=== PATIENT | male | born 1990 | race Caucasian/White ===

== ENCOUNTER 2017-02-22 16:43 | Emergency (ER) | payer OTHER ==
[2017-02-22] MEDS ORDERED: SODIUM CHLORIDE 0.9% 1,000 ML IV ONE (17:00)
--- NOTE | 2017-02-22 17:05 | ED ---
General Adult HPI - General Chief complaint: Recheck/Abnormal Lab/Rx Stated complaint: Heart Issue, numbness Time Seen by Provider: 02/22/17 16:52 Source: patient, RN notes reviewed Mode of arrival: wheelchair Limitations: no limitations - History of Present Illness Initial comments: This is a 26-year-old male with a history of Marfan syndrome who did have an aortic valve replacement done in the past several years who presents with complaints of intermittent episodes of confusion television tingling to some fingers into his face. This is been going on and off for the past several days. He also feels like he may be coming down with a migraine headache which he's had before. He did call his cargoman 2 days ago did recommend coming to the emergency department he refrain at that time he is here today. He denies any fevers chills nausea vomiting sweats. No focal weakness was upper or lower extremities no abdominal pain. He does state he is noted some irregularity to his heart and does hear his heart valve clicking lower than usual. 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 - Related Data Home Medications Medication Instructions Recorded Confirmed Butalb/APAP/Caff 50-325-40Mg 1 tab PO BID PRN 07/01/16 02/22/17 [Fioricet 50-325-40] Carvedilol [Coreg] 3.125 mg PO BID 07/01/16 02/22/17 Losartan [Cozaar] 25 mg PO DAILY 07/01/16 02/22/17 Spironolactone [Aldactone] 25 mg PO DAILY 07/01/16 02/22/17 Sildenafil Citrate [Viagra] 50 mg PO DAILY PRN 02/22/17 02/22/17 Warfarin [Coumadin] 7.5 mg PO SUTUTHSA 02/22/17 02/22/17 Warfarin [Coumadin] 10 mg PO MOWEFR 02/22/17 02/22/17 Allergies Allergy/AdvReac Type Severity Reaction Status Date / Time amoxicillin Allergy Unknown Verified 02/22/17 17:50 Childhood Review of Systems ROS Statement: Those systems with pertinent positive or pertinent negative responses have been documented in the HPI. ROS Other: All systems not noted in ROS Statement are negative. Past Medical History Additional Past Medical History / Comment(s): Marfan's Syndrome; Valvular issues AVR 2015; Spontaneous Pneumo; Aortic aneurysm History of Any Multi-Drug Resistant Organisms: None Reported Past Surgical History: Appendectomy, Orthopedic Surgery Additional Past Surgical History / Comment(s): Eye surgery; Foot surgery x4 Past Anesthesia/Blood Transfusion Reactions: No Reported Reaction Past Psychological History: No Psychological Hx Reported Smoking Status: Never smoker Past Alcohol Use History: None Reported Past Drug Use History: None Reported - Past Family History Father Family Medical History: AFIB Mother Family Medical History: No Reported History General Exam - General Exam Comments Initial Comments: This is a well-developed asthenic appearing male he is awake alert oriented 3 the patient does demonstrate some evidence of hyperventilation. Limitations: no limitations General appearance: alert, anxious Head exam: Present: atraumatic, normocephalic, normal inspection Eye exam: Present: PERRL, EOMI. Absent: scleral icterus, conjunctival injection , periorbital swelling Pupils: Present: irregular, other (Anisocoria the right pupil is pinpoint the left one is about 3-4 mm) ENT exam: Present: normal exam, mucous membranes moist Neck exam: Present: normal inspection. Absent: tenderness, meningismus, lymphadenopathy Respiratory exam: Present: normal lung sounds bilaterally. Absent: respiratory distress, wheezes, rales, rhonchi, stridor Cardiovascular Exam: Present: regular rate, normal rhythm, normal heart sounds, other (Marked audible click with the heart valve as noted.). Absent: systolic murmur, diastolic murmur, rubs, gallop, clicks GI/Abdominal exam: Present: soft, normal bowel sounds. Absent: distended, tenderness, guarding, rebound, rigid Extremities exam: Present: normal inspection, full ROM, normal capillary refill. Absent: tenderness, pedal edema, joint swelling, calf tenderness Back exam: Present: normal inspection Neurological exam: Present: alert, oriented X3, CN II-XII intact Psychiatric exam: Present: normal affect, normal mood Skin exam: Present: warm, dry, intact, normal color. Absent: rash Course Vital Signs 02/22/17 02/22/17 02/22/17 16:45 18:00 18:52 Temperature 98.1 F Pulse Rate 88 66 70 Respiratory 20 18 18 Rate Blood Pressure 137/84 136/87 143/76 O2 Sat by Pulse 98 100 97 Oximetry 06/03/17 19:05 Temperature 99.0 F Pulse Rate 78 Respiratory 18 Rate Blood Pressure 135/72 O2 Sat by Pulse 99 Oximetry EKG Findings - EKG Results: EKG: interpreted by ERMD (Sinus rhythm rate of 83. Arrival 190 QRS duration 100 daily since QTC of 376/441 possible left atrial enlargement no acute ST-T wave changes some artifact is present) Medical Decision Making - Medical Decision Making The patient currently symptom-free I did discuss findings with him and his family. Patient will be discharged I did discuss the case with Dr. Márquez also who is covering for Dr. Ramirez. The patient will be discharge is follow-up with his cargoman and return when necessary he does have an appointment rescheduled. - Lab Data Result diagrams: 02/22/17 17:00 02/22/17 17:00 Lab Results 02/22/17 02/22/17 02/22/17 Range/Units 17:00 17:00 17:00 WBC 6.3 (3.8-10.6) k/uL RBC 4.22 L (4.30-5.90) m/uL Hgb 13.6 (13.0-17.5) gm/dL Hct 40.3 (39.0-53.0) % MCV 95.5 (80.0-100.0) fL MCH 32.2 (25.0-35.0) pg MCHC 33.7 (31.0-37.0) g/dL RDW 13.0 (11.5-15.5) % Plt Count 244 (150-450) k/uL Neutrophils % 61 % Lymphocytes % 29 % Monocytes % 6 % Eosinophils % 1 % Basophils % 0 % Neutrophils # 3.9 (1.3-7.7) k/uL Lymphocytes # 1.9 (1.0-4.8) k/uL Monocytes # 0.4 (0-1.0) k/uL Eosinophils # 0.1 (0-0.7) k/uL Basophils # 0.0 (0-0.2) k/uL PT (9.0-12.0) sec INR (<1.1) APTT (22.0-30.0) sec Sodium 139 (137-145) mmol/L Potassium 4.1 (3.5-5.1) mmol/L Chloride 104 (98-107) mmol/L Carbon Dioxide 25 (22-30) mmol/L Anion Gap 10 mmol/L BUN 19 (9-20) mg/dL Creatinine 1.00 (0.66-1.25) mg/dL Est GFR (MDRD) Af Amer >60 (>60 ml/min/1.73 sqM) Est GFR (MDRD) Non-Af >60 (>60 ml/min/1.73 sqM) Glucose 105 H (74-99) mg/dL POC Glucose (mg/dL) (75-99) mg/dL POC Glu Structural Engineering Project Manager ID Calcium 9.4 (8.4-10.2) mg/dL Magnesium 1.9 (1.6-2.3) mg/dL Total Bilirubin 0.9 (0.2-1.3) mg/dL AST 22 (17-59) U/L ALT 28 (21-72) U/L Alkaline Phosphatase 63 (38-126) U/L Total Creatine Kinase 154 (55-170) U/L CK-MB (CK-2) 0.9 (0.0-2.4) ng/mL CK-MB (CK-2) Rel Index 0.6 Troponin I 0.016 (0.000-0.034) ng/mL Total Protein 7.7 (6.3-8.2) g/dL Albumin 4.8 (3.5-5.0) g/dL Urine Color Urine Appearance (Clear) Urine pH (5.0-8.0) Ur Specific [place] (1.001-1.035) Urine Protein (Negative) Urine Glucose (UA) (Negative) Urine Ketones (Negative) Urine Blood (Negative) Urine Nitrite (Negative) Urine Bilirubin (Negative) Urine Urobilinogen (<2.0) mg/dL Ur Leukocyte Esterase (Negative) Urine Opiates Screen (NotDetected) Ur Oxycodone Screen (NotDetected) Urine Methadone Screen (NotDetected) Ur Propoxyphene Screen (NotDetected) Ur Barbiturates Screen (NotDetected) U Tricyclic Antidepress (NotDetected) Ur Phencyclidine Scrn (NotDetected) Ur Amphetamines Screen (NotDetected) U Methamphetamines Scrn (NotDetected) U Benzodiazepines Scrn (NotDetected) Urine Cocaine Screen (NotDetected) U Marijuana (THC) Screen (NotDetected) 02/22/17 02/22/17 02/22/17 Range/Units 17:00 17:10 17:22 WBC (3.8-10.6) k/uL RBC (4.30-5.90) m/uL Hgb (13.0-17.5) gm/dL Hct (39.0-53.0) % MCV (80.0-100.0) fL MCH (25.0-35.0) pg MCHC (31.0-37.0) g/dL RDW (11.5-15.5) % Plt Count (150-450) k/uL Neutrophils % % Lymphocytes % % Monocytes % % Eosinophils % % Basophils % % Neutrophils # (1.3-7.7) k/uL Lymphocytes # (1.0-4.8) k/uL Monocytes # (0-1.0) k/uL Eosinophils # (0-0.7) k/uL Basophils # (0-0.2) k/uL PT 19.8 H (9.0-12.0) sec INR 2.1 (<1.1) APTT 30.5 H (22.0-30.0) sec Sodium (137-145) mmol/L Potassium (3.5-5.1) mmol/L Chloride (98-107) mmol/L Carbon Dioxide (22-30) mmol/L Anion Gap mmol/L BUN (9-20) mg/dL Creatinine (0.66-1.25) mg/dL Est GFR (MDRD) Af Amer (>60 ml/min/1.73 sqM) Est GFR (MDRD) Non-Af (>60 ml/min/1.73 sqM) Glucose (74-99) mg/dL POC Glucose (mg/dL) 117 H (75-99) mg/dL POC Glu Structural Engineering Project Manager ID [place], Malinda Calcium (8.4-10.2) mg/dL Magnesium (1.6-2.3) mg/dL Total Bilirubin (0.2-1.3) mg/dL AST (17-59) U/L ALT (21-72) U/L Alkaline Phosphatase (38-126) U/L Total Creatine Kinase (55-170) U/L CK-MB (CK-2) (0.0-2.4) ng/mL CK-MB (CK-2) Rel Index Troponin I (0.000-0.034) ng/mL Total Protein (6.3-8.2) g/dL Albumin (3.5-5.0) g/dL Urine Color Yellow Urine Appearance Clear (Clear) Urine pH 6.0 (5.0-8.0) Ur Specific [place] 1.023 (1.001-1.035) Urine Protein Negative (Negative) Urine Glucose (UA) Negative (Negative) Urine Ketones Negative (Negative) Urine Blood Negative (Negative) Urine Nitrite Negative (Negative) Urine Bilirubin Negative (Negative) Urine Urobilinogen <2.0 (<2.0) mg/dL Ur Leukocyte Esterase Negative (Negative) Urine Opiates Screen Not Detected (NotDetected) Ur Oxycodone Screen Not Detected (NotDetected) Urine Methadone Screen Not Detected (NotDetected) Ur Propoxyphene Screen Not Detected (NotDetected) Ur Barbiturates Screen Not Detected (NotDetected) U Tricyclic Antidepress Not Detected (NotDetected) Ur Phencyclidine Scrn Not Detected (NotDetected) Ur Amphetamines Screen Not Detected (NotDetected) U Methamphetamines Scrn Not Detected (NotDetected) U Benzodiazepines Scrn Not Detected (NotDetected) Urine Cocaine Screen Not Detected (NotDetected) U Marijuana (THC) Screen Detected H (NotDetected) - Radiology Data Radiology results: report reviewed (I did review the imaging and reports no acute findings.), image reviewed Disposition Clinical Impression: Hyperventilation syndrome, Marfans syndrome, History of aortic valve replacement with metallic valve Disposition: HOME SELF-CARE Condition: Good Instructions: Hyperventilation (ED), Marfan Syndrome (ED) Referrals: Teressa Resendiz MD [Primary Care Provider] - 1-2 days Noe Ramirez MD [STAFF PHYSICIAN] - 1-2 days
[2017-02-22 17:23] LABS: Appearance,Urine Clear (Clear); Bilirubin,Urine Negative (Negative); Glucose,Urine (UA) Negative (Negative); Ketones,Urine Negative (Negative); Leukocyte Esterase,Urine Negative (Negative); Nitrite,Urine Negative (Negative); Protein,Urine Negative (Negative); Specific Gravity,Urine 1.023 (1.001-1.035); UA Billing (MACRO vs. MICRO) CHEM; Urobilinogen,Urine <2.0 mg/dL (<2.0)
[2017-02-22 17:24] LABS: Basophils % (A) 0 %; CH 33.2; Eosinophils # (A) 0.1 k/uL (0-0.7); Eosinophils % (A) 1 %; HCT 40.3 % (39.0-53.0); HDW 2.51; HGB 13.6 gm/dL (13.0-17.5); Luc # (Auto) 0.12; Luc % (Auto) 2; Lymphocytes # (A) 1.9 k/uL (1.0-4.8); Lymphocytes % (A) 29 %; MCH 32.2 pg (25.0-35.0); MCHC 33.7 g/dL (31.0-37.0); MCV 95.5 fL (80.0-100.0); Monocytes # (A) 0.4 k/uL (0-1.0); Monocytes % (A) 6 %; Neutrophils # (A) 3.9 k/uL (1.3-7.7); Neutrophils % (A) 61 %; RBC 4.22 m/uL (4.30-5.90); WBC 6.3 k/uL (3.8-10.6); WBC (Perox) 6.14
[2017-02-22 17:25] LABS: Glucose,Whole Blood 117 mg/dL (75-99)
[2017-02-22 17:34] LABS: ALT 28 U/L (21-72); AST 22 U/L (17-59); Alkaline Phosphatase 63 U/L (38-126); Anion Gap 10 mmol/L; Blood Urea Nitrogen 19 mg/dL (9-20); Calcium 9.4 mg/dL (8.4-10.2); Carbon Dioxide 25 mmol/L (22-30); Chloride 104 mmol/L (98-107); Glucose 105 mg/dL (74-99); INR 2.1 (<1.1); Magnesium 1.9 mg/dL (1.6-2.3); Non-African American GFR(MDRD) >60 (>60 ml/min/1.73 sqM); Partial Thromboplastin Time 30.5 sec (22.0-30.0); Potassium 4.1 mmol/L (3.5-5.1); Prothrombin Time 19.8 sec (9.0-12.0); Sodium 139 mmol/L (137-145); Total Bilirubin 0.9 mg/dL (0.2-1.3); Total Protein 7.7 g/dL (6.3-8.2)
[2017-02-22 18:02] LABS: Creatine Kinase MB 0.9 ng/mL (0.0-2.4); Troponin I 0.016 ng/mL (0.000-0.034)
--- NOTE | 2017-02-22 18:04 | XR ---
EXAMINATION TYPE: XR chest 2V DATE OF EXAM: 02/22/2017 5:40 PM COMPARISON: 07/01/2016 HISTORY: Weakness TECHNIQUE: Frontal and lateral views of the chest are obtained. FINDINGS: There is no heart failure nor confluent pneumonic infiltrate. There are sternal wires. Hea rt size is normal. There is no pleural effusion. There are chest leads. IMPRESSION: No active cardiopulmonary disease. Cardiac surgery. No change.
--- NOTE | 2017-02-22 18:34 | CT ---
EXAMINATION TYPE: CT brain wo con DATE OF EXAM: 02/22/2017 6:29 PM COMPARISON: NONE HISTORY: Confusion CT DLP: mGycm Automated exposure control for dose reduction was used. FINDINGS: Ventricles and sulci appear normal. There is no mass effect or midline shift. There is no sign of int racranial hemorrhage. The calvarium is intact. IMPRESSION: Normal unenhanced head CT scan.
[2017-02-22 18:52] VITALS: RESP 18
[2017-02-22 19:11] VITALS: BP 135/72; PULSE 78; TEMP 99
== END 2017-02-22 19:43 | disposition home or self-care (01) ==
LOC: EC 16:43
DX: F45.8 Other somatoform disorders (principal); Q87.40 Marfan syndrome, unspecified; Z88.0 Allergy status to penicillin; Z79.01 Long term (current) use of anticoagulants; Z95.4 Presence of other heart-valve replacement; Z79.899 Other long term (current) drug therapy
CPT/HCPCS: 36415; 70450; 71020; 80053; 80306; 81003; 82550; 82553; 83735; 84484; 85025; 85610; 85730; 93005; 96360; 96361; 99284

== ENCOUNTER → 2018-12-03 | Outpatient (CLI) | payer MEDICARE, OTHER ==
--- NOTE | 2018-12-03 17:03 | CONS ---
CONSULTATION DATE OF SERVICE: 12/03/2018 28-year-old gentleman who has been evaluated in Sleep Center for possible obstructive sleep apnea-hypopnea syndrome. HISTORY OF PRESENT ILLNESS/SLEEP WAKE EVALUATION: SLEEP SCHEDULE: Patient usually goes to bed on weekdays from 8 to 10 p.m. and his sleep until around 8 to 10 a.m. On weekends, he goes to bed from 10-2:00 am and sleeps until noon. FALLING ASLEEP: Sometimes he has difficulties with falling asleep. Has TV set in bedroom. DURING SLEEP: He sleeps in different position and move a lot during the night. He snores. Grinds his teeth. He wakes up with dry mouth, palpitation, possibly episodes of gasping for air. Patient has 4-5 episodes of nocturia at night. DURING THE DAY/SLEEP WAKE EVALUATION: No history of hypnagogic hallucinations, sleep paralysis or cataplexy. [place] Sleepiness Scale increased to 10. The patient usually does not take any naps during the day, although he has difficulties to pay attention, difficulties to focus, has problem with memory, concentration irritability, depression and anxiety, worry about his sleep. PAST MEDICAL HISTORY: Positive for Marfan syndrome with multiple abnormalities related to his body, lung, heart, joint systems. Status post pneumothorax on the left side. According to patient, he has low ejection fraction around 30%. Migraines. PAST SURGICAL HISTORY: Bilateral eye surgery for correction of lens problems, aortic surgery with replacement of aortic valve to mechanical valve. Surgery for pneumothorax. Appendectomy. MEDICATIONS: Warfarin, carvedilol, losartan, spironolactone. REVIEW OF SYSTEMS: Multiple awakenings from sleep. Episodes of palpitations. FAMILY HISTORY: Heart problems, headaches. PHYSICAL EXAM: Tall gentleman without distress. BP 127/77, HR 83, RR 16, height 84 inches, 7 feet tall, weight 268.2 pounds, body mass index 26.7, temperature 98.1. Oxygen saturation at room air 96%. Oropharynx: Practically normal position of soft palate, big uvula. Retrognathia 2 to 3 mm. Neck: Wide 16-1/2 inches in circumference. Neck Supple, no JVD. Thyroid is not palpable. LUNGS Clear to percussion and to auscultation. Good air exchange. No wheezing or rhonchi. HEART: Mechanical valve, tones on aorta. ABDOMEN Soft and nontender. Bowel sounds are present. No organomegaly appreciated. EXTREMITIES No clubbing or cyanosis. 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 Cranial nerves 2 to 7 intact. There is no fasciculation or atrophy. noted. No focal deficits observed. IMPRESSION: 1. Multiple awakenings from sleep, big uvula, sleepiness, possible obstructive sleep apnea-hypopnea syndrome. 2. History of Marfan syndrome. 3. Migraines. 4. Status post bilateral eye surgery for lens problems. 5. Status post aortic surgery for wide aorta with replacement of aortic valve, mechanical valve. 6. Status post left-sided pneumothorax. 7. Status post appendectomy. 8. History of low heart ejection fraction according to patient, around 30%. PLAN: 1. Polysomnography for evaluation of patient's breathing during sleep. 2. CPAP/BiPAP titration if sleep study confirms obstructive sleep apnea-hypopnea syndrome. Titration has to be done very slowly because of history for previous pneumothorax. 3. Preferable position during sleep on the side. 4. No driving if patient feels any sleepiness. 5. I will see patient for follow up visit to explain results of testing and following plan. Thank you very much for referring this patient for consultation. Sincerely, Bryce Danielle MD, PhD, FAASM Diplomat of [place] [employer] [employer] Popcorn Attendant of [facility] [place] MMSEEMAL / MITCHELL: [id number] /
== END | disposition home or self-care (01) ==
LOC: SLEEP 13:14
PROVIDERS: ATTEND Internal Medicine
DX: K13.79 Other lesions of oral mucosa (principal); R06.83 Snoring; R40.0 Somnolence; R68.2 Dry mouth, unspecified; M26.19 Other specified anomalies of jaw-cranial base relationship; R00.2 Palpitations; R35.1 Nocturia; R45.4 Irritability and anger; G43.909 Migraine, unspecified, not intractable, without status migrainosus; R41.3 Other amnesia; Q87.418 Marfan syndrome with other cardiovascular manifestations; Q87.43 Marfan syndrome with skeletal manifestation; Z86.69 Personal history of other diseases of the nervous system and sense organs; Z95.2 Presence of prosthetic heart valve; Z98.890 Other specified postprocedural states; Z79.01 Long term (current) use of anticoagulants; Z79.899 Other long term (current) drug therapy; Z87.09 Personal history of other diseases of the respiratory system
CPT/HCPCS: 99211

== ENCOUNTER → 2019-01-28 | Outpatient (CLI) | payer MEDICARE, OTHER ==
--- NOTE | 2019-01-28 15:57 | PN ---
PROGRESS NOTE DATE OF SERVICE: 01/23/2019 This patient is a 28-year-old gentleman who has been followed in the sleep center and is here to discuss results of sleep studies and recommendations. The patient had a diagnostic polysomnogram which did not show any significant respiratory abnormalities during sleep. Total apnea-hypopnea index was only 0.3 and lowest oxygen level was 91.5%, which is totally normal. Heart rate was in the range between 52 and 106. The patient slept during the polysomnogram for 6 hours and 15 minutes. Sleep efficiency was normal at 90.5%. No REM although have been documented. Multiple sleep latency test that was done on the following day consisted of 4 naps. The patient fell asleep on all naps very quickly. Sleep latency was extremely short at 2.4 minutes. Three sleep-onset REM periods have been documented. MEDICATIONS: 1. Warfarin. 2. Carvedilol. 3. Losartan. 4. Spironolactone. 5. Cyclobenzaprine. PHYSICAL EXAMINATION: GENERAL: A pleasant patient in no distress. VITAL SIGNS: BP is 102/66, HR 82, RR 16, height 7 feet, weight 274.8 pounds, body mass index 27.4, oxygen saturation on room air 96%. HEENT: PERRLA, EOMI. Evaluation of oropharynx showed tongue protrudes midline. NECK: Supple. No JVD. Thyroid is not palpable. LUNGS: Clear to percussion and to auscultation. Good air exchange. No wheezing or rhonchi. HEART: S1, S2 regular. No murmurs, gallops or rubs. Sounds of mechanical valve during auscultation of the heart. ABDOMEN: Soft and nontender. Bowel sounds are present. No organomegaly. EXTREMITIES: No clubbing or cyanosis. CERTIFIED COMPOSITES TECHNICIAN: Awake, alert, and oriented X3. Cranial nerves 2 to 7 intact. There is no fasciculation or atrophy. noted. No focal deficits observed. IMPRESSION: 1. No significant respiratory abnormalities have been documented during the sleep study. 2. Multiple sleep latency test confirmed pathological sleepiness with 3 sleep-onset REM periods, which could indicate narcolepsy. 3. History of Marfan syndrome. 4. Migraines. 5. Status post bilateral eye surgery for lens problem. 6. Status post aortic surgery for replacement of aortic valve with mechanical valve. 7. Status post left-sided pneumothorax. 8. Status post appendectomy. 9. History of low ejection fraction by echocardiogram. PLAN: 1. We will try the smallest dose of modafinil for the daytime to prevent sleepiness. 2. Sleep hygiene with regular time in bed for at least 7-1/2 or 8 hours. 3. Daytime naps permitted. 4. Precautions related to driving. No driving if feeling any sleepiness. Thank you very much for allowing me to participate in the management of your patient. Sincerely, Bryce Danielle MD, PhD, FAASM Diplomat of [place] [employer] [employer] Mat Packer of [facility] [place] MMODL / IJN: [id number] /
== END | disposition home or self-care (01) ==
LOC: SLEEP 14:04
PROVIDERS: ATTEND Internal Medicine
DX: R40.0 Somnolence (principal); Q87.40 Marfan syndrome, unspecified; G43.909 Migraine, unspecified, not intractable, without status migrainosus; J93.9 Pneumothorax, unspecified; Z98.890 Other specified postprocedural states; Z95.5 Presence of coronary angioplasty implant and graft; Z90.89 Acquired absence of other organs; Z86.79 Personal history of other diseases of the circulatory system; Z82.79 Family history of other congenital malformations, deformations and chromosomal abnormalities

== ENCOUNTER → 2019-05-13 | Outpatient (CLI) | payer MEDICARE, OTHER ==
--- NOTE | 2019-05-13 13:31 | SFUN ---
SLEEP CENTER FOLLOW UP NOTE DATE OF SERVICE: 05/13/2019 This 28-year-old gentleman had been followed in sleep center for treatment of narcolepsy. Narcolepsy was confirmed by multiple sleep latency test, which showed that sleep latency is pathologically short only 2.4 minutes and 3 sleep onset REM periods have been documented, which is confirming diagnosis of narcolepsy. The patient's tried treatment with modafinil 200 mg in the morning and with this regimen he feels better during the day. He feels alert during the day, but evaluation showed that that increased his heart rate and increase his blood pressure. Subsequently, medication was stopped. Presently, the patient continued to feel significant sleepiness. Mather Sleepiness Scale is 14. MEDICATIONS: Warfarin, carvedilol, losartan, spironolactone, . PHYSICAL EXAMINATION: During physical exam, a 28-year-old gentleman without distress. VITAL SIGNS: BP 152/85, HR 88, RR 16, height 7 feet, weight 248.0, body mass index 24.6, temperature 97.2, oxygen saturation at room air 96%. HEENT: PERRLA, EOMI, evaluation of oropharynx showed tongue protrudes midline. NECK: Supple, no JVD. Thyroid is not palpable. LUNGS: Clear to percussion and to auscultation. Good air exchange. No wheezing or rhonchi. HEART S1, S2 regular. Mechanical valve tones with aorta. ABDOMEN: Soft and nontender. Bowel sounds are present. No organomegaly appreciated. EXTREMITIES: No clubbing or cyanosis. 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 Cranial nerves 2 to 7 intact. There is no fasciculation or atrophy. noted. No focal deficits observed. IMPRESSION: 1. 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 2. Status post aortic valve replacement by mechanical valve. 3. History of Marfan syndrome. 4. Migraines. 5. Status post left-sided pneumothorax. 6. Status post appendectomy. 7. History of low ejection fraction by echocardiogram. PLAN: 1. I discussed with the patient the possibility to use different types of medication for treatment of narcolepsy, but in his case, other medications like Ritalin or Adderall or medications from another group have more risk for increasing heart rate and blood pressure versus to modafinil. 2. I believe patient may try to use modafinil with a lower dose like 100 mg. Previously he tried 200 mg with checking his response on this dose with relationship to his alertness during the day and also relation to his heart condition. The patient will discuss it with his process planner. He will not start medication without permission from cardiology. 3. Sleep hygiene with regular time in bed for at least 8 hours. 4. Daytime naps permitted. The patient may have scheduled naps during the day. 5. Extreme precautions to driving. No driving if feeling sleepiness. Patient promised to follow recommendations. He is aware about civil and criminal liability for unsafe driving. My recommendation is not to drive until his alertness will improve. Thank you very much for allowing me to participate in management of the patient. Sincerely, Bryce Danielle MD, PhD, FAASM Diplomat of [place] [employer] [place] [employer] Packager Hand [facility] [place] MMSEEMAL / MITCHELL: [id number] /
== END | disposition home or self-care (01) ==

== ENCOUNTER 2019-07-22 07:06 | Emergency (ER) | payer MEDICARE, OTHER ==
[2019-07-22] MEDS ORDERED: ONDANSETRON 4 MG/2 ML VIAL IVP STA (07:24)
[2019-07-22] MEDS ORDERED: SODIUM CHLORIDE 0.9% 1,000 ML IV STA (07:24)
[2019-07-22] MEDS ORDERED: diphenhydrAMINE 50 MG/ML 1 ML VIAL IVP STA (07:24)
[2019-07-22] MEDS ORDERED: KETOROLAC 30 MG/ML 1 ML VIAL IVP STA (07:25)
[2019-07-22] MEDS ORDERED: DEXAMETHASONE SOD PHOSPHATE 10 MG/ML 1 ML VIAL IV STA (07:35)
--- NOTE | 2019-07-22 07:38 | ED ---
General Adult HPI - General Chief complaint: Headache Stated complaint: Headache Time Seen by Provider: 07/22/19 07:24 Source: patient Mode of arrival: ambulatory Limitations: no limitations - History of Present Illness Initial comments: Dictation was produced using Fanzo dictation software. please excuse any grammatical, word or spelling errors. Chief Complaint: 28-year-old male with Marfan's disease presents with headache. History of Present Illness: 28-year-old male. He has past medical history of Marfan syndrome. Patient states that he is here today for headache. He had a headache since about 8 PM last night. Patient suffers from migraine headaches once a month. States that this headache is typical of his usual headaches. Patient states that it is holocranial throbbing in nature. He did complain of a oral prior to the onset of his headache which is typical for him. States it is not the worse headache of his life. Patient also suffers from narcolepsy and hasn't had a good night's rest in several days. He tried taking oral medications to alleviate his headache however has not any relief. Denies any fever, chills or night sweats. Denies any numbness and paresthesias. No chest pain. Denies any neck symptoms. Headache is not thunderclap in nature. It is not the worst headache of his life. The ROS documented in this emergency department record has been reviewed and confirmed by me. Those systems with pertinent positive or negative responses have been documented in the HPI. All other systems are other negative and/or noncontributory. PHYSICAL EXAM: General Impression: Alert and oriented x3, not in acute distress HEENT: Normocephalic atraumatic, extra-ocular movements intact, pupils equal and reactive to light bilaterally, mucous membranes moist. Cardiovascular: Heart regular rate and rhythm, S1&S2 audible, no murmurs, rubs or gallops Chest: Lungs clear to auscultation bilaterally, no rhonchi, no wheeze, no rales Abdomen: Bowel sounds present, abdomen soft, non-tender, non-distended, no organomegaly Musculoskeletal: Pulses present and equal in all extremities, no peripheral edema Motor: no focal deficits noted Neurological: CN II-XII grossly intact, no focal motor or sensory deficits noted Skin: Intact with no visualized rashes Psych: Normal affect and mood ED course: 28 Year-old male past medical history Marfan's disease presents with headache. Vital signs upon arrival are within acceptable limits. Patient is a history of headaches. He states his headache is typical of his usual headaches that occur once a month. Physical examination is benign. No focal neurologic deficits.Patient reevaluated after initial headache cocktail. With improvement of symptoms. Still has residual headache. Patient given magnesium. Patient reevaluated after magnesium with improvement of headache. At this point patient clear for discharge. Patient advised follow-up with primary care physician. Return parameters discussed. Clinical presentation consistent with migraine. - Related Data Home Medications Medication Instructions Recorded Confirmed Carvedilol [Coreg] 6.25 mg PO BID 07/01/16 07/22/19 Losartan [Cozaar] 25 mg PO DAILY 07/01/16 07/22/19 Spironolactone [Aldactone] 25 mg PO DAILY 07/01/16 07/22/19 Warfarin [Coumadin] 10 mg PO HS 02/22/17 07/22/19 ALPRAZolam [Xanax] 0.25 mg PO DAILY PRN 07/22/19 07/22/19 Aspirin EC [Ecotrin] 325 mg PO DAILY PRN 07/22/19 07/22/19 Modafinil [Provigil] 100 mg PO DAILY 07/22/19 07/22/19 Naproxen Sodium [Aleve] 220 mg PO DAILY PRN 07/22/19 07/22/19 [place] Unknown Dose 1 tab PO BID PRN 07/22/19 07/22/19 Allergies Allergy/AdvReac Type Severity Reaction Status Date / Time amoxicillin Allergy Unknown Verified 07/22/19 08:14 Childhood Review of Systems ROS Statement: Those systems with pertinent positive or pertinent negative responses have been documented in the HPI. ROS Other: All systems not noted in ROS Statement are negative. Past Medical History Additional Past Medical History / Comment(s): Marfan's Syndrome; Valvular issues AVR 2014; Spontaneous Pneumo; Aortic aneurysm History of Any Multi-Drug Resistant Organisms: None Reported Past Surgical History: Appendectomy, Orthopedic Surgery Additional Past Surgical History / Comment(s): Eye surgery; Foot surgery x4 Past Anesthesia/Blood Transfusion Reactions: No Reported Reaction Past Psychological History: No Psychological Hx Reported Smoking Status: Never smoker Past Alcohol Use History: None Reported Past Drug Use History: None Reported - Past Family History Father Family Medical History: AFIB Mother Family Medical History: No Reported History General Exam Limitations: no limitations Course Vital Signs 07/22/19 07/22/19 07/22/19 07:20 07:58 08:00 Temperature 98.1 F Pulse Rate 98 Respiratory 20 Rate Blood Pressure 140/80 145/90 O2 Sat by Pulse 99 96 98 Oximetry 07/22/19 07/22/19 07/22/19 08:30 08:36 09:00 Temperature Pulse Rate 83 Respiratory 18 Rate Blood Pressure 144/91 144/91 137/74 O2 Sat by Pulse Oximetry 07/22/19 09:30 Temperature Pulse Rate Respiratory Rate Blood Pressure 137/73 O2 Sat by Pulse 95 Oximetry Disposition Clinical Impression: Headache Disposition: HOME SELF-CARE Condition: Good Instructions (If sedation given, give patient instructions): Acute Headache (ED) Is patient prescribed a controlled substance at d/c from ED?: No Referrals: Teressa Resendiz MD [Primary Care Provider] - 1-2 days Time of Disposition: 10:17
[2019-07-22 08:38] VITALS: RESP 18
[2019-07-22] MEDS: MAGNESIUM SULFATE-D5W PMX 1 GM in DEXTROSE/WATER 1 100ML.BAG IVPB SCH ×2 (09:46→10:47)
[2019-07-22 12:36] VITALS: BP 127/72; PULSE 78; TEMP 98.7
== END 2019-07-22 12:37 | disposition home or self-care (01) ==
LOC: EC 07:06
DX: R51 Headache (principal); Q87.40 Marfan syndrome, unspecified; G47.419 Narcolepsy without cataplexy; Z88.0 Allergy status to penicillin; Z79.01 Long term (current) use of anticoagulants; Z79.82 Long term (current) use of aspirin; Z79.899 Other long term (current) drug therapy; Z95.2 Presence of prosthetic heart valve; Z86.79 Personal history of other diseases of the circulatory system
CPT/HCPCS: 99283; 96365; 96366; 96375 ×3; 96361 ×3; J1200; J1100; J2405; J3475

== ENCOUNTER → 2019-08-26 | Outpatient (CLI) | payer MEDICARE, OTHER ==
--- NOTE | 2019-08-26 15:04 | PN ---
PROGRESS NOTE DATE OF SERVICE: 08/26/2019 A 28-year-old gentleman has been followed in the Sleep Center for treatment of narcolepsy without cataplexy. The patient continued to feel sleepiness during the day and has problems with sleep at night. Patient has difficulties to concentrate during the day. Multiple sleep latency test before showed extremely short sleep latency 2.4 minutes with 3 sleep onset REM periods. [place] Sleepiness Scale today is in the range 10 to 11, which is slightly lower than during the previous visits. MEDICATIONS: Warfarin, carvedilol, losartan, spironolactone. PHYSICAL EXAM: Patient in no distress. BP 125/72, HR 86, RR 14. Height 7 foot, weight 253.0 pounds, body mass index 25.2, temperature 97.2, oxygen saturation at room air 97%. HEENT: PERRLA, EOMI, evaluation of oropharynx showed tongue protrudes midline. NECK: Supple, no JVD. Thyroid is not palpable. LUNGS: Clear to percussion and to auscultation. Good air exchange. No wheezing or rhonchi. HEART: S1, S2 regular. No murmurs, gallops, or rubs. ABDOMEN: Soft and nontender. Bowel sounds are present. No organomegaly appreciated. EXTREMITIES: No clubbing or cyanosis. CHINA DECORATOR: Awake, alert, and oriented X3. Cranial nerves 2 to 7 intact. There is no fasciculation or atrophy. noted. No focal deficits observed. IMPRESSION: 1. Narcolepsy without cataplexy. 2. History of Marfan syndrome. 3. Status post aortic valve replacement with mechanical valve. 4. Migraines. 5. Status post left-sided pneumothorax. 6. Status post appendectomy. 7. Status post history of low ejection fraction by echocardiogram. PLAN: 1. Consideration when that modafinil was not recommended by glove turner and former, we will consider to try which is new medication histamine receptor stimulant in the brain. I discussed with the patient possible side effects including possibility of increasing QS interval by electrocardiogram by this medication. 2. Sleep hygiene, regular time in bed for at least 8 hours. 3. Daytime naps permitted for extreme precautions to driving. No driving if feeling sleepiness. Thank you very much for allowing me to participate in the management of your patient. Sincerely, Bryce Danielle MD, PhD, FAASM Diplomat of [employer] Specialties [employer] Board of [employer] Medicine Java Developer Analyst of [facility] [place] MMODL / BRIDGETTN: [id number] /
== END | disposition home or self-care (01) ==
LOC: SLEEP 13:19
PROVIDERS: ATTEND Internal Medicine
DX: G47.419 Narcolepsy without cataplexy (principal); G43.909 Migraine, unspecified, not intractable, without status migrainosus; Z95.2 Presence of prosthetic heart valve; Z87.39 Personal history of other diseases of the musculoskeletal system and connective tissue; Z87.09 Personal history of other diseases of the respiratory system; Z98.890 Other specified postprocedural states; Z79.01 Long term (current) use of anticoagulants; Z79.899 Other long term (current) drug therapy

== ENCOUNTER → 2019-11-02 | Outpatient (CLI) | payer MEDICARE, OTHER ==
--- NOTE | 2019-11-02 15:29 | XR ---
EXAMINATION TYPE: XR thoracic spine 2V DATE OF EXAM: 11/02/2019 CLINICAL HISTORY: pain TECHNIQUE: Frontal, lateral, and swimmer's view of thoracic spine are obtained. COMPARISON: None. FINDINGS: Thoracic spine show satisfactory alignment without evidence of acute fracture or dislocatio n. Curvature noted convex to the right. Vertebral body heights are preserved. Disc spaces are well p reserved. Visualized ribs are unremarkable. IMPRESSION: No acute fracture or dislocation is seen in the thoracic spine. ICD 10 NO FRACTURE, INIT IAL EVALUATION
--- NOTE | 2019-11-02 15:29 | XR ---
EXAMINATION TYPE: XR lumbosacral spine min 4V DATE OF EXAM: 11/02/2019 CLINICAL HISTORY: pain COMPARISON: NONE TECHNIQUE: Frontal, lateral, and oblique images of the lumbar spine are obtained. FINDINGS: There are 5 lumbar type vertebral bodies identified. The lumbar spine shows satisfactory alignment without evidence of acute fracture or dislocation. Curvature noted convex to the left. Vert ebral body heights are within normal limits. Disc spaces are well preserved. The overlying soft tis antelmo appears unremarkable. IMPRESSION: No acute fracture or dislocation is seen in the lumbar spine.ICD 10 NO FRACTURE, INITIAL EVALUATION
--- NOTE | 2019-11-02 15:30 | XR ---
EXAMINATION TYPE: XR cervical spine comp DATE OF EXAM: 11/02/2019 CLINICAL HISTORY: pain COMPARISON: NONE TECHNIQUE: Frontal, lateral, oblique, swimmers, and open mouth view of the cervical spine are obtaine d. FINDINGS: There is reversal of the normal cervical lordosis. Mild degenerative narrowing at C4-5 and C5-6. Mild ventral spondylosis. The cervical spine is visualized in its entirety from C1 thru the to p of T1 level. It is satisfactory in alignment without evidence of acute fracture or dislocation. Th e pre-vertebral soft tissue appears within normal limits. Disc spaces are well preserved. The C1-C2 a rticulation is unremarkable on the open mouth view. The oblique images are within normal limits. IMPRESSION: No acute fracture or dislocation is seen in the cervical spine.ICD 10 NO FRACTURE, INITI AL EVALUATION
== END | disposition home or self-care (01) ==
LOC: RADXRMAIN 14:40
PROVIDERS: ATTEND Internal Medicine
DX: R52 Pain, unspecified (principal)
CPT/HCPCS: 72050; 72070; 72110

== ENCOUNTER 2019-12-01 | Observation (INO) | payer MEDICARE, OTHER | END 2019-12-02 15:40 | disposition home or self-care (01) | PROVIDERS: ADMIT Hospitalist | CPT/HCPCS: 93005 ×2; 99285; 36415; 93306; 83880; 80053; 80048; 83735; 84484 ×2; 85025 ×2; 85610 ×2; 85730; 71046; 71275; 74174; G0378 ×2; Q9967 ==

== ENCOUNTER → 2019-12-01 | Outpatient (CLI) | payer MEDICARE, OTHER ==
--- NOTE | 2019-12-01 15:13 | SFUN ---
SLEEP CENTER FOLLOW UP NOTE DATE OF SERVICE: 12/01/2019 A 29-year-old gentleman who has been followed in the Sleep Center for treatment of narcolepsy. Patient tried to take Wakix, patient started to take it about 5 weeks ago. He started from taking of 4 mg a day in the morning and with this dose, patient feels better and feel less sleepy during the day and he took this those doses for 2 weeks and then following the standard recommendation about medication dose, patient increased dose to 12 mg and then to 17.2 mg. After the dose was increased about 1 week ago patient started to develop episodes of panic attack, tightness in the chest, episodes of palpitations. He called to Sleep Center several days ago and I recommend him to stop medication today. He is 2 days after stopping medication while going to the sleep clinic. He feels that he is short of breath and feeling exertion. [place] Sleepiness Scale is 12. The patient sleeps at night with several awakenings, although he also taking temazepam 30 mg at bedtime. Other medications include warfarin, carvedilol, losartan, spironolactone. PHYSICAL EXAM: Patient in no distress. BP 150/90, HR 90, RR 15, height 7, 0, weight 253, temperature 97.0, oxygen saturation at room air 97%. OROPHARYNX: Moderately low soft palate, Mallampati III. HEART: Tachycardia sound of a mechanical fall. NECK: Supple, no JVD. Thyroid is not palpable. LUNGS: Clear to percussion and to auscultation. Good air exchange. No wheezing or rhonchi. ABDOMEN: Soft and nontender. Bowel sounds are present. No organomegaly appreciated. EXTREMITIES: No clubbing or cyanosis. UNDERWRITING ASSISTANT: Awake, alert, and oriented X3. Cranial nerves 2 to 7 intact. There is no fasciculation or atrophy. noted. No focal deficits observed. IMPRESSION: 1. Narcolepsy without cataplexy. 2. History of Marfan syndrome. 3. Status post aortic valve replacement with mechanical valve. 4. Episodes of migraines. 5. Status post left-sided pneumothorax. 6. Increased blood pressure today in the office. 7. Status post appendectomy. 8. History of low ejection fraction by echocardiogram. PLAN: 1. Patient will continue not to use Wakix at the present time. 2. Patient will follow with the talent recruiter office for monitoring of blood pressure. I believe that his episodes of shortness of breath could be related to increasing blood pressure and subsequently influencing on ejection fraction. 3. Sleep hygiene with regular time in bed for at least 8 hours. The patient will continue to take temazepam at bedtime. 4. Extreme precautions to driving. No driving if feeling sleepiness. Patient is aware about civil and criminal liability for unsafe driving and driving would be not safe for him. 5. We may consider to return option or treatment with Wakix in the future with very small dose of 4 mg only, but presently patient will stay without medication. 6. Patient will have electrocardiogram to check for QS interval because Wakix might increase prolongivity of QS interval. Thank you very much for allowing me to participate in the management of your patient. Sincerely, Bryce Danielle MD, PhD, FAASM Diplomat of [employer] Board [employer] Specialties Indonesian Board of Internal Medicine Welfare Eligibility Worker of [facility] [place] MMSEEMAL / BRIDGETTN: [id number] /
== END | disposition home or self-care (01) ==
LOC: SLEEP 13:37
PROVIDERS: ATTEND Internal Medicine
DX: G47.419 Narcolepsy without cataplexy (principal); G43.909 Migraine, unspecified, not intractable, without status migrainosus; I10 Essential (primary) hypertension; Z87.898 Personal history of other specified conditions; Z95.4 Presence of other heart-valve replacement; Z87.09 Personal history of other diseases of the respiratory system; Z90.49 Acquired absence of other specified parts of digestive tract; Z86.79 Personal history of other diseases of the circulatory system

== ENCOUNTER → 2020-03-17 | Outpatient (CLI) | payer MEDICARE, OTHER ==
--- NOTE | 2020-03-17 09:05 | US ---
EXAMINATION TYPE: US scrotum with doppler. Grayscale and color Doppler Duplex imaging performed of t dustin scrotum. DATE OF EXAM: 03/17/2020 COMPARISON: NONE CLINICAL HISTORY: N50 TESTICULAR PAIN. Pulling sensation on the right side of testicle, no trauma or injury, patient states urinating and ejaculating are different this past week. EXAM MEASUREMENTS: TESTICLES: Right Testicle: 5.2 x 3.8 x 2.1 cm Left Testicle: 4.2 x 3.3 x 2.3 cm EPIDIDYMIS HEAD: Right Epididymis: 1.1 cm Left Epididymis: 0.8 cm Doppler performed to assess for testicular vascularity; good bilateral color flow and waveforms are s een. There is no evidence of testicular torsion. Presence of hydroceles: no, mild free fluid seen lateral to right testicle Presence of varicoceles: possible varicose seen on the right, does dilate with valsalva IMPRESSION: 1. Mild right hydrocele and minimal right varicocele.
== END | disposition home or self-care (01) ==
LOC: RADUSWWP 07:40
PROVIDERS: ATTEND Internal Medicine
DX: N43.3 Hydrocele, unspecified (principal); I86.1 Scrotal varices
CPT/HCPCS: 76870; 93975

== ENCOUNTER → 2020-05-11 | Outpatient (CLI) | payer MEDICARE, OTHER ==
--- NOTE | 2020-05-12 02:57 | SFUN ---
SLEEP CENTER FOLLOW UP NOTE DATE OF SERVICE: 05/11/2020 This is a 29-year-old gentleman who has been followed in Sleep Center for treatment of narcolepsy. Presently patient on treatment with modafinil 100 mg in the morning. With this medication, patient feels better for about 4 hours, but then continued to feel sleepiness. Sometimes he has taken naps during the day. Feels better after naps. During the night, he sleeps from about 10 or 11 p.m. until 10 or 11 a.m. He wakes up from sleep multiple times with nocturia. He takes Ambien 5 mg at the beginning of the night, sleeps for 4 hours, but then started to wake up. MEDICATIONS: Tramadol, Ambien, modafinil. PHYSICAL EXAMINATION: GENERAL: Patient in no distress. VITAL SIGNS: BP 112/73, HR 86, RR 15, height 7 feet, weight 245 pounds, temperature 98.6, oxygen saturation at room air 95%. HEENT: PERRLA, EOMI, evaluation of oropharynx showed tongue protrudes midline. NECK: Supple, no JVD. Thyroid is not palpable. LUNGS: Clear to percussion and to auscultation. Good air exchange. No wheezing or rhonchi. HEART: Sound of mechanical valve. ABDOMEN: Soft and nontender. Bowel sounds are present. No organomegaly appreciated. EXTREMITIES: No clubbing or cyanosis. STEMHOLE BORER AND TOPPER: Awake, alert, and oriented X3. Cranial nerves 2 to 7 intact. There is no fasciculation or atrophy. noted. No focal deficits observed. IMPRESSION: 1. Narcolepsy without cataplexy. 2. History of Marfan syndrome. 3. Status post aortic valve replacement with mechanical valve. 4. Status post left-sided pneumothorax. 5. History of episodes of migraine. 6. History of low ejection fraction by echocardiogram. 7. Status post appendectomy. PLAN: 1. Prescription for Ambien CR 6.25 mg at bedtime. 2. Will try to change modafinil to armodafinil, which usually works longer. Prescription for armodafinil 150 mg to take 1 tablet in the morning. 3. Sleep hygiene with regular time in bed for at least 8 hours. 4. Precautions related to driving. No driving if feeling sleepiness. 5. Daytime naps permitted. Thank you very much for allowing me to participate in management of your patient. Sincerely, Bryce Danielle MD, PhD, FAASM Diplomat of [employer] Specialties [employer] Board of Internal Medicine Academic Support Coordinator of [facility] [place] FLOYD / MITCHELL: [id number] /
== END | disposition home or self-care (01) ==
LOC: SLEEP 11:29
PROVIDERS: ATTEND Internal Medicine
DX: G47.419 Narcolepsy without cataplexy (principal); Z87.39 Personal history of other diseases of the musculoskeletal system and connective tissue; Z86.69 Personal history of other diseases of the nervous system and sense organs; Z95.2 Presence of prosthetic heart valve; Z90.2 Acquired absence of lung [part of]; Z90.49 Acquired absence of other specified parts of digestive tract; Z86.79 Personal history of other diseases of the circulatory system; Z79.891 Long term (current) use of opiate analgesic; Z79.899 Other long term (current) drug therapy

== ENCOUNTER → 2020-05-18 | Outpatient (CLI) | payer MEDICARE, OTHER ==
--- NOTE | 2020-05-18 22:17 | SFUN ---
SLEEP CENTER FOLLOW UP NOTE DATE OF SERVICE: 05/18/2020 This patient is a 29-year-old gentleman who has been followed in Sleep Center for treatment of narcolepsy, difficulties sleeping during the night. I saw him one week ago. The patient returned back because he does not feel improvement while he started to use Ambien in the beginning of the night. He continued to wake up in the middle of the night with nocturia and is reporting he has some memory problems that he believes are related to the medication. He continues to take his modafinil in low doses in the morning, 100 mg. The patient used regular Ambien, not Ambien CR, which I prescribed for him last visit. PHYSICAL EXAMINATION: GENERAL: A pleasant patient in no distress. VITAL SIGNS: BP 121/79, HR 94, RR 16, oxygen saturation at room air 96%. Temperature 97.9. Weight 239.2. NECK: Supple. No JVD. Thyroid is not palpable. LUNGS: Clear to percussion and to auscultation. Good air exchange. No wheezing or rhonchi. HEART: Sounds of mechanical valve. ABDOMEN: Soft and nontender. Bowel sounds are present. No organomegaly. EXTREMITIES: No clubbing or cyanosis. CIS COORDINATOR: Awake, alert, and oriented X3. Cranial nerves 2 to 7 intact. There is no fasciculation or atrophy. noted. No focal deficits observed. IMPRESSION: 1. Narcolepsy without cataplexy. 2. History of Marfan syndrome. 3. Status post aortic valve replacement with mechanical valve. 4. Status post left-sided pneumothorax. 5. History of migraines. 6. History of low ejection fraction by echocardiogram. 7. Status post appendectomy. PLAN: 1. We will repeat sleep study again for reevaluation of patient's breathing during sleep. The previous sleep study was negative, but the patient continues to wake up in the middle of the night with nocturia. 2. Sleep hygiene with regular time in bed for 7-1/2 to 8 hours. 3. Daytime naps permitted. 4. No driving if feeling any sleepiness. Thank you very much for allowing me to participate in management of your patient. Sincerely, Bryce Danielle MD, PhD, FAASM Diplomat of [employer] Specialties [employer] of Internal Medicine Radiation Oncologist of [facility] [place] MMODL / IJN: [id number] /
== END | disposition home or self-care (01) ==
LOC: SLEEP 12:45
PROVIDERS: ATTEND Internal Medicine
DX: G47.419 Narcolepsy without cataplexy (principal); Z95.2 Presence of prosthetic heart valve; Z87.09 Personal history of other diseases of the respiratory system; Z86.69 Personal history of other diseases of the nervous system and sense organs; Z82.79 Family history of other congenital malformations, deformations and chromosomal abnormalities

== ENCOUNTER → 2020-08-31 | Outpatient (CLI) | payer MEDICARE, OTHER ==
--- NOTE | 2020-08-31 12:10 | SFUN ---
SLEEP CENTER FOLLOW UP NOTE DATE OF SERVICE: 08/31/2020 A 29-year-old gentleman who has been followed in the Sleep Center for treatment of narcolepsy. The patient was on treatment with modafinil 100 mg, which is lowest dose and that does improve his alertness, but he feels that it does not work for the whole day and he is asking to possibly use medication which works longer. [place] Sleepiness Scale today is 13. PHYSICAL EXAM: Patient in no distress, BP 134/80, HR 91, RR 15, temperature 97.8, oxygen saturation at room air 96%, weight 226.2 pounds. Heart murmur related to aortic mechanical valve. IMPRESSION: 1. 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 2. History of Marfan syndrome. 3. Status post aortic valve replacement with mechanical valve. 4. Status post left-sided pneumothorax. 5. History of migraines. 6. History of low ejection fraction by echocardiogram. 7. Status post appendectomy. PLAN: 1. The patient will try armodafinil, which is approximately the same medication is modafinil, but working slightly longer. I wrote a prescription for armodafinil 150 mg in the morning once a day. 2. Sleep hygiene with time in bed for 7-1/2 hours. 3. Precautions related to driving. No driving if feeling sleepiness. Thank you very much for allowing me to participate in management of your patient. Sincerely, Bryce Danielle MD, PhD, FAASM Diplomat of [employer] of Medical Specialties [employer]cu[employer] Board of Internal Medicine Tire Changer of [facility] [place] MMODL / IJN: [id number] /
== END | disposition home or self-care (01) ==
LOC: SLEEP 10:31
PROVIDERS: ATTEND Internal Medicine
DX: G47.419 Narcolepsy without cataplexy (principal); Z95.2 Presence of prosthetic heart valve; Z98.890 Other specified postprocedural states; Z87.09 Personal history of other diseases of the respiratory system; Z86.59 Personal history of other mental and behavioral disorders

== ENCOUNTER → 2020-11-08 | Outpatient (CLI) | payer MEDICARE, OTHER ==
--- NOTE | 2020-11-08 23:46 | SFUN ---
SLEEP CENTER FOLLOW UP NOTE DATE OF SERVICE: 11/08/2020 29-year-old gentleman who has been followed in Sleep Center for treatment of narcolepsy. Presently, patient on treatment with armodafinil 150 mg once a day in the morning, which improves his alertness, but he still feels exhausted in the morning after the sleep and takes medication usually not every day because if he is taking medication every day, he still feels some changes of his mood. [place] Sleepiness Scale today is 15. The patient insisting to try something different. Additionally, asking for the trial with the Hywav. MEDICATIONS: Spironolactone 25 mg once a day, losartan 25 mg twice a day, carvedilol twice a day, warfarin 10 mg twice a day, armodafinil 150 mg once a day. PHYSICAL EXAM: Patient in no distress. BP 130/91, HR around 100, height 7, 0, weight 221.0, BMI 22. HEENT: PERRLA, EOMI, evaluation of oropharynx showed tongue protrudes midline. NECK: Supple, no JVD. Thyroid is not palpable. LUNGS: Clear to percussion and to auscultation. Good air exchange. No wheezing or rhonchi. HEART: Sounds of mechanical wall after aortic valve replacement. ABDOMEN: Soft and nontender. Bowel sounds are present. No organomegaly appreciated. EXTREMITIES: No clubbing or cyanosis. DIRECTOR FAMILY: Awake, alert, and oriented X3. Cranial nerves 2 to 7 intact. There is no fasciculation or atrophy. noted. No focal deficits observed. IMPRESSION: 1. 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 2. History of Marfan syndrome. 3. Status post aortic valve replacement with mechanical. 4. Status post left-sided pneumothorax. 5. History of migraines. 6. History of low ejection fraction by echocardiogram. 7. Status post appendectomy. PLAN: 1. Continue armodafinil 100 mg time in the morning. 2. We will consider to try smallest dose of Hywav. A new form of iron which does not have a high level of sodium as iron. I discussed with the patient the possibility of side effect of medication including the severity of side effects related to suicidality, headaches. The patient still wants to try medication and insisting to try. He was explained that in case if he develops any side effects, immediately stop medication. 3. Sleep hygiene with regular time in bed for 7.5 to 8 hours. 4. No driving if feeling sleepiness. Thank you very much for allowing me to participate in the management of your patient. Bryce Danielle MD, PhD, FAASM Diplomat of [employer]ue[employer] Board of Medical Specialties Niuean Board of Internal Medicine Supervisor Shaving And Splitting of [facility] [place] MMVIDAL / MITCHELL: [id number] /
== END | disposition home or self-care (01) ==
LOC: SLEEP 14:40
PROVIDERS: ATTEND Internal Medicine
DX: G47.419 Narcolepsy without cataplexy (principal); Z95.2 Presence of prosthetic heart valve; Z98.890 Other specified postprocedural states; Z86.69 Personal history of other diseases of the nervous system and sense organs; Z87.09 Personal history of other diseases of the respiratory system; Z79.01 Long term (current) use of anticoagulants; Z79.899 Other long term (current) drug therapy

== ENCOUNTER → 2020-11-09 | Outpatient (CLI) | payer MEDICARE, OTHER ==
[2020-11-09 22:56] LABS: Basophils # (A) 0.02 X 10*3/uL (0.00-0.10); Basophils % (A) 0.5 %; Eosinophils # (A) 0.04 X 10*3/uL (0.04-0.35); Eosinophils % (A) 0.9 %; HCT 38.8 % (39.6-50.0); HGB 13.2 g/dL (13.0-17.0); Lymphocytes # (A) 1.66 X 10*3/uL (0.90-5.00); Lymphocytes % (A) 37.7 %; MCH 31.4 pg (27.0-32.0); MCV 92.2 fL (80.0-97.0); Mean Platelet Volume 11.1 fL (9.5-12.2); Monocytes # (A) 0.43 X 10*3/uL (0.20-1.00); Monocytes % (A) 9.8 %; Neutrophils # (A) 2.24 X 10*3/uL (1.80-7.70); Neutrophils % (A) 50.9 %; Platelet Count 272 X 10*3/uL (140-440); RBC 4.21 X 10*6/uL (4.40-5.60); RDW 12.6 % (11.5-14.5)
[2020-11-10 00:39] LABS: African American GFR (CKD) 116.5 (60.0-200.0); Albumin 4.7 g/dL (3.80-4.90); Albumin/Globulin Ratio 2.35 (1.60-3.17); Anion Gap 5.3 mmol/L (4.00-12.00); Carbon Dioxide 26.7 mmol/L (21.6-31.8); Non-African American GFR(CKD) 100.5 (60.0-200.0); Potassium 4.4 mmol/L (3.5-5.5); Total Bilirubin 0.5 mg/dL (0.3-1.2); Total Protein 6.7 g/dL (6.2-8.2)
[2020-11-10 00:48] LABS: T4, Free (Free Thyroxine) 1.3 ng/dL (0.80-1.80)
[2020-11-10 01:38] LABS: Hemoglobin A1C 5.1 % (4.0-6.0)
[2020-11-11 16:45] LABS: Hepatitis A Antibody IgM Non-Reactive (Non-Reactive); Hepatitis B Core IgM Non-Reactive (Non-Reactive); Hepatitis B Surface Antigen Non-Reactive (Non-Reactive); Hepatitis C IgG Antibody Non-Reactive (Non-Reactive)
== END | disposition home or self-care (01) ==
LOC: LABWHC1 16:15
PROVIDERS: ATTEND Internal Medicine
DX: Q87.40 Marfan syndrome, unspecified (principal); R63.4 Abnormal weight loss
CPT/HCPCS: 36415; 80053; 80074; 83036; 84403; 84439; 84443; 84481; 85025

== ENCOUNTER → 2020-12-06 | Outpatient (CLI) | payer MEDICARE, OTHER ==
--- NOTE | 2020-12-06 16:39 | SFUN ---
SLEEP CENTER FOLLOW UP NOTE DATE OF SERVICE: 12/06/2020 This is a 30-year-old gentleman who has been followed in Sleep Center for treatment of narcolepsy. Two weeks ago the patient was started on treatment with the lowest dose of Hywav. The patient feels better with medication. He is not so sleepy as before. He sleeps better during the night. He does not have problems taking 2 doses. Presently he is on the lowest dose at 2.25 grams two times at night. During the day he also started to take his armodafinil 150 mg, but with armodafinil he feels some discomfort and he has difficulties concentrating during the day. Previously he was treated with Adderall, but because of cardiac issues Adderall was stopped. Presently he discussed that issue with his alterations tailor, and according to them he could try to restart Adderall. [place] Sleepiness Scale today is 4. MEDICATIONS: Spironolactone, carvedilol, losartan, warfarin, , armodafinil. PHYSICAL EXAMINATION: GENERAL: A pleasant patient in no distress. VITAL SIGNS: BP 126/75, HR 76, RR 15, height 7 feet 0 inches, weight 221 pounds, BMI 22.0, temperature 97.8, oxygen saturation at room air 97%. HEENT: PERRLA, EOMI. Evaluation of oropharynx showed tongue protrudes midline. NECK: Supple. No JVD. Thyroid is not palpable. LUNGS: Clear to percussion and to auscultation. Good air exchange. No wheezing or rhonchi. HEART: S1, S2 regular. No murmurs, gallops or rubs. ABDOMEN: Soft and nontender. Bowel sounds are present. No organomegaly appreciated. EXTREMITIES: No clubbing or cyanosis. CORRECTIVE THERAPY AIDE TEACHER: Awake, alert, and oriented X3. Cranial nerves 2 to 7 intact. There is no fasciculation or atrophy. noted. No focal deficits observed. IMPRESSION: 1. Narcolepsy, type 2. 2. History of Marfan syndrome. 3. Status post aortic valve replacement with mechanical valve. 4. Status post left-sided pneumothorax. 5. History of migraines. 6. History of low ejection fraction by echocardiogram. 7. Status post appendectomy. PLAN: 1. The patient will continue to take Hywav with the smallest dose, 2.25 grams 2 times per night. 2. Prescription for Adderall ER 5 mg once a day in the morning. The patient will stop taking armodafinil. 3. Sleep hygiene with regular time in bed for 7-1/2 hours. 4. No driving if feeling sleepiness. 5. I will see the patient in 2 months. Thank you very much for allowing me to participate in the management of your patient. Sincerely, Bryce Danielle MD, PhD, FAASM Diplomat of [place] [employer] [place] [employer] Engineering Clerk of [facility] [place] MMODL / IJN: [id number] /
== END ==
LOC: SLEEP 14:12
PROVIDERS: ATTEND Internal Medicine
DX: G47.419 Narcolepsy without cataplexy (principal); Q87.40 Marfan syndrome, unspecified; G43.909 Migraine, unspecified, not intractable, without status migrainosus; Z90.89 Acquired absence of other organs; Z98.3 Post therapeutic collapse of lung status; Z95.4 Presence of other heart-valve replacement; Z86.79 Personal history of other diseases of the circulatory system

== ENCOUNTER 2021-02-04 17:54 | Emergency (ER) | payer MEDICARE, OTHER ==
--- NOTE | 2021-02-04 18:34 | ED ---
Weakness HPI - General Chief complaint: Weakness Stated complaint: Fatigue, lung pain Time Seen by Provider: 02/04/21 18:07 Source: patient Mode of arrival: ambulatory - History of Present Illness Initial comments: 30-year-old male with history of Marfan syndrome, aortic dissection, mechanical aortic valve and currently on Coumadin presents to the emergency department with chief complaint of fatigue and lung pain. Patient reports he began exercising and change his diet but has lost about 50 pounds since October. States he was intending to lose weight but not this much. Patient also reports over the last 2 weeks he has been more fatigued than usual and has developed orthostatic hypertension symptoms where he would feel slightly lightheaded when going from a sitting to a standing position. Patient also reports a pain across the lower chest region that is exacerbated when taking deep breaths. He denies any abdominal pain nausea vomiting, nausea, vomiting, extremity weakness. - Related Data Home Medications Medication Instructions Recorded Confirmed Losartan [Cozaar] 50 mg PO DAILY 07/01/16 12/01/19 Spironolactone [Aldactone] 25 mg PO DAILY 07/01/16 12/01/19 carvediloL [Coreg] 6.25 mg PO BID 07/01/16 12/01/19 Ibuprofen [Motrin Ib] 400 mg PO Q6H PRN 12/01/19 12/01/19 Naproxen Sodium [Aleve] 220 mg PO BID PRN 12/01/19 12/01/19 SUMAtriptan SUCCINATE [Imitrex] 100 mg PO DAILY PRN 12/01/19 12/01/19 Temazepam [Restoril] 30 mg PO HS PRN 12/01/19 12/01/19 Warfarin [Coumadin] 10 mg PO HS 12/01/19 12/01/19 diphenhydrAMINE HCL [Benadryl] 25 mg PO HS PRN 12/01/19 12/01/19 Pitolisant HCl [Wakix] 17.8 mg PO DAILY 12/02/19 12/02/19 Allergies Allergy/AdvReac Type Severity Reaction Status Date / Time amoxicillin Allergy Unknown Verified 02/04/21 18:01 Childhood Review of Systems ROS Statement: Those systems with pertinent positive or pertinent negative responses have been documented in the HPI. ROS Other: All systems not noted in ROS Statement are negative. Past Medical History Additional Past Medical History / Comment(s): Marfan's Syndrome; Valvular issues AVR 2015; Spontaneous Pneumo; Aortic aneurysm, migraines History of Any Multi-Drug Resistant Organisms: None Reported Past Surgical History: Appendectomy, Orthopedic Surgery Additional Past Surgical History / Comment(s): Eye surgery; Foot surgery x4 Past Anesthesia/Blood Transfusion Reactions: No Reported Reaction Additional Past Anesthesia/Blood Transfusion Reaction / Comment(s): Patient states that he has woke up during every surgery he has had. Past Psychological History: No Psychological Hx Reported Smoking Status: Never smoker Past Alcohol Use History: None Reported Past Drug Use History: None Reported - Past Family History Father Family Medical History: AFIB Mother Family Medical History: No Reported History General Exam Limitations: no limitations General appearance: alert, in no apparent distress Head exam: Present: atraumatic, normocephalic, normal inspection Eye exam: Present: normal appearance, PERRL, EOMI Pupils: Present: normal accommodation ENT exam: Present: normal exam, normal oropharynx, mucous membranes moist, TM's normal bilaterally, normal external ear exam Neck exam: Present: normal inspection, full ROM. Absent: tenderness, lymphadenopathy Respiratory exam: Present: normal lung sounds bilaterally. Absent: respiratory distress, wheezes, rales, rhonchi, stridor, chest wall tenderness Cardiovascular Exam: Present: regular rate, normal rhythm, normal heart sounds (Loud, mechanical sounds in the right sternal region ) GI/Abdominal exam: Present: soft. Absent: distended, tenderness, guarding Extremities exam: Present: normal inspection, full ROM, normal capillary refill, other (Palpable DP and PT bilaterally.). Absent: tenderness, pedal edema, join t swelling, calf tenderness Back exam: Present: normal inspection, full ROM. Absent: tenderness Neurological exam: Present: alert, oriented X3 Psychiatric exam: Present: normal affect, normal mood Skin exam: Present: warm, dry, intact, normal color Course Vital Signs 02/04/21 02/04/21 02/04/21 17:58 19:30 20:57 Temperature 96.9 F L 98.1 F Pulse Rate 100 86 71 Respiratory 18 16 16 Rate Blood Pressure 138/85 133/89 133/79 O2 Sat by Pulse 97 98 98 Oximetry Medical Decision Making - Medical Decision Making 30-year-old male with history of Marfan syndrome, aortic dissection, mechanical aortic valve and currently on Coumadin presents to the emergency department with chief complaint of fatigue and lung pain. Patient has excellent peripheral pulses. Patient does not appear to be in any discomfort at this time. No abdominal tenderness or pain. EKG is unremarkable. Laboratory workup is negative. Initial troponins are also negative. Negative d-dimer as well. Deepthi ent is to follow with PCP and see cardiology. Case discussed with . Return parameters discussed the patient is an attending agreeable. - Lab Data Result diagrams: 02/04/21 18:39 02/04/21 18:39 Lab Results 02/04/21 02/04/21 02/04/21 Range/Units 18:39 18:39 18:39 WBC 5.2 (3.8-10.6) k/uL RBC 4.31 (4.30-5.90) m/uL Hgb 13.9 (13.0-17.5) gm/dL Hct 39.6 (39.0-53.0) % MCV 91.7 (80.0-100.0) fL MCH 32.2 (25.0-35.0) pg MCHC 35.1 (31.0-37.0) g/dL RDW 12.4 (11.5-15.5) % Plt Count 237 (150-450) k/uL MPV 7.7 Neutrophils % 65 % Lymphocytes % 26 % Monocytes % 6 % Eosinophils % 2 % Basophils % 1 % Neutrophils # 3.4 (1.3-7.7) k/uL Lymphocytes # 1.3 (1.0-4.8) k/uL Monocytes # 0.3 (0-1.0) k/uL Eosinophils # 0.1 (0-0.7) k/uL Basophils # 0.0 (0-0.2) k/uL PT 29.0 H (9.0-12.0) sec INR 3.0 H (<1.2) APTT 32.9 H (22.0-30.0) sec D-Dimer <0.17 (<0.60) mg/L FEU Sodium 136 L (137-145) mmol/L Potassium 4.3 (3.5-5.1) mmol/L Chloride 104 (98-107) mmol/L Carbon Dioxide 23 (22-30) mmol/L Anion Gap 9 mmol/L BUN 16 (9-20) mg/dL Creatinine 0.87 (0.66-1.25) mg/dL Est GFR (CKD-EPI)AfAm >90 (>60 ml/min/1.73 sqM) Est GFR (CKD-EPI)NonAf >90 (>60 ml/min/1.73 sqM) Glucose 112 H (74-99) mg/dL Calcium 9.2 (8.4-10.2) mg/dL Magnesium 1.8 (1.6-2.3) mg/dL Total Bilirubin 0.5 (0.2-1.3) mg/dL AST 25 (17-59) U/L ALT 16 (4-49) U/L Alkaline Phosphatase 59 (38-126) U/L Troponin I (0.000-0.034) ng/mL NT-Pro-B Natriuret Pep pg/mL Total Protein 6.9 (6.3-8.2) g/dL Albumin 4.4 (3.5-5.0) g/dL Lipase (23-300) U/L 02/04/21 02/04/21 02/04/21 Range/Units 18:39 18:39 18:39 WBC (3.8-10.6) k/uL RBC (4.30-5.90) m/uL Hgb (13.0-17.5) gm/dL Hct (39.0-53.0) % MCV (80.0-100.0) fL MCH (25.0-35.0) pg MCHC (31.0-37.0) g/dL RDW (11.5-15.5) % Plt Count (150-450) k/uL MPV Neutrophils % % Lymphocytes % % Monocytes % % Eosinophils % % Basophils % % Neutrophils # (1.3-7.7) k/uL Lymphocytes # (1.0-4.8) k/uL Monocytes # (0-1.0) k/uL Eosinophils # (0-0.7) k/uL Basophils # (0-0.2) k/uL PT (9.0-12.0) sec INR (<1.2) APTT (22.0-30.0) sec D-Dimer (<0.60) mg/L FEU Sodium (137-145) mmol/L Potassium (3.5-5.1) mmol/L Chloride (98-107) mmol/L Carbon Dioxide (22-30) mmol/L Anion Gap mmol/L BUN (9-20) mg/dL Creatinine (0.66-1.25) mg/dL Est GFR (CKD-EPI)AfAm (>60 ml/min/1.73 sqM) Est GFR (CKD-EPI)NonAf (>60 ml/min/1.73 sqM) Glucose (74-99) mg/dL Calcium (8.4-10.2) mg/dL Magnesium (1.6-2.3) mg/dL Total Bilirubin (0.2-1.3) mg/dL AST (17-59) U/L ALT (4-49) U/L Alkaline Phosphatase (38-126) U/L Troponin I 0.013 (0.000-0.034) ng/mL NT-Pro-B Natriuret Pep 40 pg/mL Total Protein (6.3-8.2) g/dL Albumin (3.5-5.0) g/dL Lipase 168 (23-300) U/L - EKG Data EKG Comments: Sinus rhythm Ventricular rate 87, W[place] 182, QRS 90, QTC 435. Disposition Clinical Impression: Atypical chest pain, Fatigue Disposition: HOME SELF-CARE Condition: Stable Instructions (If sedation given, give patient instructions): Chest Pain (DC) Additional Instructions: Follow with her primary care physician. Return to emergency department if symptoms worsen. Is patient prescribed a controlled substance at d/c from ED?: No Referrals: Teressa Resendiz MD [Primary Care Provider] - 1-2 days Time of Disposition: 20:50
[2021-02-04 18:53] LABS: Basophils % (A) 1 %; Eosinophils # (A) 0.1 k/uL (0-0.7); Eosinophils % (A) 2 %; HCT 39.6 % (39.0-53.0); HGB 13.9 gm/dL (13.0-17.5); Lymphocytes # (A) 1.3 k/uL (1.0-4.8); Lymphocytes % (A) 26 %; MCH 32.2 pg (25.0-35.0); MCHC 35.1 g/dL (31.0-37.0); MCV 91.7 fL (80.0-100.0); Mean Platelet Volume 7.7; Monocytes # (A) 0.3 k/uL (0-1.0); Monocytes % (A) 6 %; Neutrophils # (A) 3.4 k/uL (1.3-7.7); Neutrophils % (A) 65 %; Platelet Count 237 k/uL (150-450); RBC 4.31 m/uL (4.30-5.90); RDW 12.4 % (11.5-15.5); WBC 5.2 k/uL (3.8-10.6)
[2021-02-04 19:00] LABS: ALT 16 U/L (4-49); AST 25 U/L (17-59); African American GFR (CKD) >90 (>60 ml/min/1.73 sqM); Albumin 4.4 g/dL (3.5-5.0); Alkaline Phosphatase 59 U/L (38-126); Anion Gap 9 mmol/L; Blood Urea Nitrogen 16 mg/dL (9-20); Calcium 9.2 mg/dL (8.4-10.2); Carbon Dioxide 23 mmol/L (22-30); Chloride 104 mmol/L (98-107); Glucose 112 mg/dL (74-99); Magnesium 1.8 mg/dL (1.6-2.3); Non-African American GFR(CKD) >90 (>60 ml/min/1.73 sqM); Sodium 136 mmol/L (137-145); Total Bilirubin 0.5 mg/dL (0.2-1.3); Total Protein 6.9 g/dL (6.3-8.2)
--- NOTE | 2021-02-04 19:00 | XR ---
EXAMINATION TYPE: XR chest 2V DATE OF EXAM: 02/04/2021 COMPARISON: 12/01/2019 HISTORY: Chest pain TECHNIQUE: FINDINGS: Heart is normal. Lungs are clear of infiltrate. There is no heart failure. Costophrenic ang les are clear. There are sternal wires and cardiac valve surgery. Bony thorax is intact. IMPRESSION: No active cardiopulmonary disease. No change.
[2021-02-04 19:03] LABS: D-Dimer <0.17 mg/L FEU (<0.60); Partial Thromboplastin Time 32.9 sec (22.0-30.0)
[2021-02-04 19:17] LABS: Potassium 4.3 mmol/L (3.5-5.1)
[2021-02-04 19:31] VITALS: RESP 16; TEMP 98.1
[2021-02-04 20:59] VITALS: BP 133/79; PULSE 71
== END 2021-02-04 20:57 | disposition home or self-care (01) ==
LOC: EC 17:54
DX: R07.89 Other chest pain (principal); R53.83 Other fatigue
CPT/HCPCS: 36415; 71046; 80053; 83690; 83735; 83880; 84484; 85025; 85379; 85610; 85730; 93005; 99285

== ENCOUNTER 2021-02-05 23:05 | Emergency (ER) | payer MEDICARE, OTHER ==
[2021-02-05 23:10] VITALS: TEMP 98
[2021-02-05] MEDS ORDERED: MORPHINE SULFATE 4 MG/ML SYRINGE IV STA (23:23)
[2021-02-05 23:59] LABS: Basophils % (A) 1 %; Eosinophils # (A) 0.1 k/uL (0-0.7); Eosinophils % (A) 2 %; HCT 40.9 % (39.0-53.0); HGB 14.3 gm/dL (13.0-17.5); Lymphocytes # (A) 2.2 k/uL (1.0-4.8); Lymphocytes % (A) 33 %; MCH 32.3 pg (25.0-35.0); MCV 92.2 fL (80.0-100.0); Mean Platelet Volume 7.7; Monocytes # (A) 0.4 k/uL (0-1.0); Monocytes % (A) 6 %; Neutrophils # (A) 3.7 k/uL (1.3-7.7); Neutrophils % (A) 57 %; Platelet Count 246 k/uL (150-450); RBC 4.43 m/uL (4.30-5.90); RDW 12.5 % (11.5-15.5); WBC 6.5 k/uL (3.8-10.6)
[2021-02-06 00:11] LABS: ALT 16 U/L (4-49); AST 26 U/L (17-59); African American GFR (CKD) >90 (>60 ml/min/1.73 sqM); Albumin 4.8 g/dL (3.5-5.0); Alkaline Phosphatase 63 U/L (38-126); Amylase 95 U/L (30-110); Anion Gap 6 mmol/L; Blood Urea Nitrogen 18 mg/dL (9-20); C Reactive Protein 0.5 mg/dL (<1.0); Calcium 9.5 mg/dL (8.4-10.2); Carbon Dioxide 26 mmol/L (22-30); Chloride 104 mmol/L (98-107); Glucose 104 mg/dL (74-99); Lipase 229 U/L (23-300); Non-African American GFR(CKD) >90 (>60 ml/min/1.73 sqM); Sodium 136 mmol/L (137-145); Total Bilirubin 0.6 mg/dL (0.2-1.3); Total Protein 7.4 g/dL (6.3-8.2)
--- NOTE | 2021-02-06 00:14 | XR ---
EXAMINATION TYPE: XR KUB DATE OF EXAM: 02/06/2021 COMPARISON: NONE HISTORY: Abdominal pain TECHNIQUE: 2 views upright FINDINGS: There is no sign of intestinal obstruction or pneumoperitoneum. Fecal pattern is normal. Th ere is no evidence of a mass. There is mild lumbar levoscoliosis. Lung bases are clear. There are no pathologic calcifications. IMPRESSION: Nonacute abdomen.
[2021-02-06 00:47] LABS: Appearance,Urine Clear (Clear); Bilirubin,Urine Negative (Negative); Blood,Urine Negative (Negative); Color,Urine Colorless; Glucose,Urine (UA) Negative (Negative); Ketones,Urine Negative (Negative); Leukocyte Esterase,Urine Negative (Negative); Nitrite,Urine Negative (Negative); Protein,Urine Negative (Negative); Specific Gravity,Urine 1.004 (1.001-1.035); Urobilinogen,Urine <2.0 mg/dL (<2.0)
--- NOTE | 2021-02-06 01:14 | ED ---
Abdominal Pain HPI - General Chief Complaint: Abdominal Pain Stated Complaint: hernia Time Seen by Provider: 02/05/21 23:21 Source: patient Mode of arrival: ambulatory Limitations: no limitations - History of Present Illness Initial Comments: This patient is a 30-year-old man with history of Marfan, who presents to be evaluated for periumbilical abdominal pain. The patient states this been going on for number days. He was concerned today because he noticed that his umbilical hernia was present. He states that he was able to press and it did reduce prior to coming in. He notes that the pain seemed to be provoked after he had been increasing his workout regimen, using the abdominal muscles more than usual. Patient notes that he does have appointment scheduled to address the umbilical hernia. The patient has not had change in bowel movements or urination. No vomiting though there has been little bit of nausea intermittently. MD Complaint: abdominal pain -: days(s) Location: periumbilical Radiation: none Severity: mild Quality: cramping, aching Consistency: constant Improves With: nothing Worsens With: nothing - Related Data Home Medications Medication Instructions Recorded Confirmed Losartan [Cozaar] 50 mg PO DAILY 07/01/16 12/01/19 Spironolactone [Aldactone] 25 mg PO DAILY 07/01/16 12/01/19 carvediloL [Coreg] 6.25 mg PO BID 07/01/16 12/01/19 Ibuprofen [Motrin Ib] 400 mg PO Q6H PRN 12/01/19 12/01/19 Naproxen Sodium [Aleve] 220 mg PO BID PRN 12/01/19 12/01/19 SUMAtriptan SUCCINATE [Imitrex] 100 mg PO DAILY PRN 12/01/19 12/01/19 Temazepam [Restoril] 30 mg PO HS PRN 12/01/19 12/01/19 Warfarin [Coumadin] 10 mg PO HS 12/01/19 12/01/19 diphenhydrAMINE HCL [Benadryl] 25 mg PO HS PRN 12/01/19 12/01/19 Pitolisant HCl [Wakix] 17.8 mg PO DAILY 12/02/19 12/02/19 Allergies Allergy/AdvReac Type Severity Reaction Status Date / Time amoxicillin Allergy Unknown Verified 02/05/21 23:08 Childhood Review of Systems ROS Statement: Those systems with pertinent positive or pertinent negative responses have been documented in the HPI. ROS Other: All systems not noted in ROS Statement are negative. Constitutional: Denies: fever, chills, weakness Respiratory: Denies: cough, dyspnea Cardiovascular: Denies: chest pain, palpitations, edema Gastrointestinal: Reports: abdominal pain, nausea. Denies: vomiting, diarrhea, constipation, melena, hematochezia Genitourinary: Denies: dysuria, hematuria, discharge, testicular pain, testicular mass Musculoskeletal: Denies: back pain Skin: Denies: rash Neurological: Denies: headache, weakness Past Medical History Additional Past Medical History / Comment(s): Marfan's Syndrome; Valvular issues AVR 2015; Spontaneous Pneumo; Aortic aneurysm, migraines History of Any Multi-Drug Resistant Organisms: None Reported Past Surgical History: Appendectomy, Orthopedic Surgery Additional Past Surgical History / Comment(s): Eye surgery; Foot surgery x4 Past Anesthesia/Blood Transfusion Reactions: No Reported Reaction Additional Past Anesthesia/Blood Transfusion Reaction / Comment(s): Patient states that he has woke up during every surgery he has had. Past Psychological History: No Psychological Hx Reported Smoking Status: Never smoker Past Alcohol Use History: None Reported Past Drug Use History: None Reported - Past Family History Father Family Medical History: AFIB Mother Family Medical History: No Reported History General Exam Limitations: no limitations General appearance: alert, in no apparent distress Head exam: Present: atraumatic, normocephalic Eye exam: Present: normal appearance. Absent: scleral icterus, conjunctival injection ENT exam: Present: normal oropharynx Neck exam: Present: normal inspection Respiratory exam: Present: normal lung sounds bilaterally. Absent: respiratory distress, wheezes, rales, rhonchi, stridor Cardiovascular Exam: Present: regular rate, normal rhythm, normal heart sounds. Absent: systolic murmur, diastolic murmur, rubs, gallop GI/Abdominal exam: Present: soft, normal bowel sounds, hernia (Small umbilical hernia which is currently reduced and nontender). Absent: distended, tenderness, guarding, rebound, rigid, mass, pulsatile mass Extremities exam: Present: normal inspection, normal capillary refill. Absent: pedal edema, calf tenderness Back exam: Present: normal inspection. Absent: CVA tenderness (R), CVA tenderness (L) Neurological exam: Present: alert Skin exam: Present: warm, dry, intact, normal color. Absent: rash Course Vital Signs 02/05/21 02/06/21 02/06/21 23:05 00:09 01:22 Temperature 98.0 F Pulse Rate 91 72 70 Respiratory 18 16 16 Rate Blood Pressure 141/92 125/80 127/73 O2 Sat by Pulse 98 97 98 Oximetry Medical Decision Making - Medical Decision Making Patient's 30-year-old man with some periumbilical abdominal pain. Given the patient's history regarding the hernia suspect that this is the underlying matt ology though it is currently reduced. Discussed attempting to minimize the use of abdominal muscles until the consultation for the hernia. Discussed the warning signs are related to hernia and incarceration. Return parameters discussed and appropriate further care and follow-up - Lab Data Result diagrams: 02/05/21 23:32 02/05/21 23:32 Lab Results 02/05/21 02/05/21 02/05/21 Range/Units 23:32 23:32 23:32 WBC 6.5 (3.8-10.6) k/uL RBC 4.43 (4.30-5.90) m/uL Hgb 14.3 (13.0-17.5) gm/dL Hct 40.9 (39.0-53.0) % MCV 92.2 (80.0-100.0) fL MCH 32.3 (25.0-35.0) pg MCHC 35.0 (31.0-37.0) g/dL RDW 12.5 (11.5-15.5) % Plt Count 246 (150-450) k/uL MPV 7.7 Neutrophils % 57 % Lymphocytes % 33 % Monocytes % 6 % Eosinophils % 2 % Basophils % 1 % Neutrophils # 3.7 (1.3-7.7) k/uL Lymphocytes # 2.2 (1.0-4.8) k/uL Monocytes # 0.4 (0-1.0) k/uL Eosinophils # 0.1 (0-0.7) k/uL Basophils # 0.0 (0-0.2) k/uL D-Dimer <0.17 (<0.60) mg/L FEU Sodium 136 L (137-145) mmol/L Potassium 4.0 (3.5-5.1) mmol/L Chloride 104 (98-107) mmol/L Carbon Dioxide 26 (22-30) mmol/L Anion Gap 6 mmol/L BUN 18 (9-20) mg/dL Creatinine 0.85 (0.66-1.25) mg/dL Est GFR (CKD-EPI)AfAm >90 (>60 ml/min/1.73 sqM) Est GFR (CKD-EPI)NonAf >90 (>60 ml/min/1.73 sqM) Glucose 104 H (74-99) mg/dL Plasma Lactic Acid Jun (0.7-2.0) mmol/L Calcium 9.5 (8.4-10.2) mg/dL Total Bilirubin 0.6 (0.2-1.3) mg/dL AST 26 (17-59) U/L ALT 16 (4-49) U/L Alkaline Phosphatase 63 (38-126) U/L C-Reactive Protein 0.5 (<1.0) mg/dL Total Protein 7.4 (6.3-8.2) g/dL Albumin 4.8 (3.5-5.0) g/dL Amylase 95 (30-110) U/L Lipase 229 (23-300) U/L Urine Color Urine Appearance (Clear) Urine pH (5.0-8.0) Ur Specific [place] (1.001-1.035) Urine Protein (Negative) Urine Glucose (UA) (Negative) Urine Ketones (Negative) Urine Blood (Negative) Urine Nitrite (Negative) Urine Bilirubin (Negative) Urine Urobilinogen (<2.0) mg/dL Ur Leukocyte Esterase (Negative) 02/05/21 02/06/21 Range/Units 23:32 00:28 WBC (3.8-10.6) k/uL RBC (4.30-5.90) m/uL Hgb (13.0-17.5) gm/dL Hct (39.0-53.0) % MCV (80.0-100.0) fL MCH (25.0-35.0) pg MCHC (31.0-37.0) g/dL RDW (11.5-15.5) % Plt Count (150-450) k/uL MPV Neutrophils % % Lymphocytes % % Monocytes % % Eosinophils % % Basophils % % Neutrophils # (1.3-7.7) k/uL Lymphocytes # (1.0-4.8) k/uL Monocytes # (0-1.0) k/uL Eosinophils # (0-0.7) k/uL Basophils # (0-0.2) k/uL D-Dimer (<0.60) mg/L FEU Sodium (137-145) mmol/L Potassium (3.5-5.1) mmol/L Chloride (98-107) mmol/L Carbon Dioxide (22-30) mmol/L Anion Gap mmol/L BUN (9-20) mg/dL Creatinine (0.66-1.25) mg/dL Est GFR (CKD-EPI)AfAm (>60 ml/min/1.73 sqM) Est GFR (CKD-EPI)NonAf (>60 ml/min/1.73 sqM) Glucose (74-99) mg/dL Plasma Lactic Acid Jun 0.8 (0.7-2.0) mmol/L Calcium (8.4-10.2) mg/dL Total Bilirubin (0.2-1.3) mg/dL AST (17-59) U/L ALT (4-49) U/L Alkaline Phosphatase (38-126) U/L C-Reactive Protein (<1.0) mg/dL Total Protein (6.3-8.2) g/dL Albumin (3.5-5.0) g/dL Amylase (30-110) U/L Lipase (23-300) U/L Urine Color Colorless Urine Appearance Clear (Clear) Urine pH 6.0 (5.0-8.0) Ur Specific [place] 1.004 (1.001-1.035) Urine Protein Negative (Negative) Urine Glucose (UA) Negative (Negative) Urine Ketones Negative (Negative) Urine Blood Negative (Negative) Urine Nitrite Negative (Negative) Urine Bilirubin Negative (Negative) Urine Urobilinogen <2.0 (<2.0) mg/dL Ur Leukocyte Esterase Negative (Negative) Disposition Clinical Impression: Abdominal pain Disposition: HOME SELF-CARE Condition: Good Instructions (If sedation given, give patient instructions): Abdominal Pain (ED) Is patient prescribed a controlled substance at d/c from ED?: No Referrals: Teressa Resendiz MD [Primary Care Provider] - 1-2 days
[2021-02-06 01:23] VITALS: BP 127/73; PULSE 70; RESP 16
== END 2021-02-06 01:50 | disposition home or self-care (01) ==
LOC: EC 23:05
DX: R10.33 Periumbilical pain (principal); Q87.40 Marfan syndrome, unspecified; Z79.01 Long term (current) use of anticoagulants; Z79.1 Long term (current) use of non-steroidal anti-inflammatories (NSAID); Z95.2 Presence of prosthetic heart valve
CPT/HCPCS: 36415; 74018; 80053; 81003; 82150; 83605; 83690; 85025; 85379; 86140; 99284

== ENCOUNTER → 2021-02-15 | Outpatient (CLI) | payer MEDICARE, OTHER ==
--- NOTE | 2021-02-15 20:11 | SFUN ---
SLEEP CENTER FOLLOW UP NOTE DATE OF SERVICE: 02/15/2021 This 30-year-old gentleman has been followed in Sleep Center for treatment of narcolepsy. At present the patient is on treatment with Xywav at nighttime, and with this regimen he feels significant improvement in his condition. He sleeps better during the night, he feels less sleepy and less tired and has more energy during the day. [place] Sleepiness Scale today is 11. He does not have any episodes of headaches, which were provoked by strong emotions before, probably equivalent of cataplexy attacks. At present he is taking 6 grams of Xywav at nighttime with the two- dose standard that is recommended. With modafinil, the patient has some discomfort. He thinks that modafinil is working better for him. MEDICATIONS: Spironolactone, carvedilol, losartan, warfarin, Xywav, modafinil. PHYSICAL EXAMINATION: GENERAL: A pleasant gentleman without distress. VITAL SIGNS: BP 146/91, HR 59, RR 15, height 7 feet, weight 221 pounds, temperature 97.0, oxygen saturation at room air 100, body mass index 22. HEENT: PERRLA, EOMI. Evaluation of oropharynx showed tongue protrudes midline. NECK: Supple. No JVD. Thyroid is not palpable. LUNGS: Clear to percussion and to auscultation. Good air exchange. No wheezing or rhonchi. HEART: Sounds of mechanical aortic valve. ABDOMEN: Soft and nontender. Bowel sounds are present. No organomegaly appreciated. EXTREMITIES: No clubbing or cyanosis. EDGE INKER HEELS: Awake, alert, and oriented X3. Cranial nerves 2 to 7 intact. There is no fasciculation or atrophy. noted. No focal deficits observed. IMPRESSION: 1. Narcolepsy, possibly type 1. 2. History of Marfan syndrome. 3. Status post aortic valve replacement with mechanical valve. 4. Status post left-sided pneumothorax. 5. History of migraines. 6. History of low ejection fraction by echocardiogram in the past. 7. Status post appendectomy. PLAN: 1. The patient will continue to take Xywav 3-3.5 grams twice a night. 2. Prescription for modafinil 200 mg once a day in the morning. 3. Precautions related to driving. No driving if feeling any sleepiness. 4. Sleep hygiene with regular time in bed for 7-1/2 to 8 hours. 5. Daytime naps permitted if necessary. Thank you very much for allowing me to participate in the management of your patient. Sincerely, Bryce Danielle MD, PhD, FAASM Diplomat of [employer] Formula Clerk of [facility] [place] MMODL / BRIDGETTN: [id number] /
== END ==
LOC: SLEEP 14:11
PROVIDERS: ATTEND Internal Medicine
DX: G47.419 Narcolepsy without cataplexy (principal); G43.909 Migraine, unspecified, not intractable, without status migrainosus; Q87.40 Marfan syndrome, unspecified; Z87.09 Personal history of other diseases of the respiratory system; Z90.49 Acquired absence of other specified parts of digestive tract; Z95.2 Presence of prosthetic heart valve; Z86.79 Personal history of other diseases of the circulatory system; Z79.899 Other long term (current) drug therapy; Z88.1 Allergy status to other antibiotic agents

== ENCOUNTER 2021-08-08 20:42 | Emergency (ER) | payer MEDICARE, OTHER ==
[2021-08-08 22:39] VITALS: TEMP 97.7
[2021-08-08 23:55] LABS: Basophils % (A) 0 %; Eosinophils # (A) 0.1 k/uL (0-0.7); Eosinophils % (A) 2 %; HCT 41.6 % (39.0-53.0); HGB 14.7 gm/dL (13.0-17.5); Lymphocytes # (A) 2.4 k/uL (1.0-4.8); Lymphocytes % (A) 34 %; MCH 32.5 pg (25.0-35.0); MCHC 35.2 g/dL (31.0-37.0); MCV 92.3 fL (80.0-100.0); Mean Platelet Volume 7.7; Monocytes # (A) 0.5 k/uL (0-1.0); Monocytes % (A) 6 %; Neutrophils # (A) 4.1 k/uL (1.3-7.7); Neutrophils % (A) 56 %; Platelet Count 254 k/uL (150-450); RBC 4.51 m/uL (4.30-5.90); RDW 11.8 % (11.5-15.5); WBC 7.2 k/uL (3.8-10.6)
--- NOTE | 2021-08-09 00:07 | XR ---
EXAMINATION TYPE: XR chest 2V DATE OF EXAM: 08/08/2021 COMPARISON: 02/04/2021 HISTORY: Difficulty breathing TECHNIQUE: FINDINGS: Heart is normal. Lungs are clear of consolidation. There are no hilar masses. There are vikram rnal wires. There is cardiac valve surgery. There is no pleural effusion. Bony thorax is intact. IMPRESSION: No active cardiomegaly disease. No change.
[2021-08-09 00:14] LABS: ALT 53 U/L (4-49); AST 93 U/L (17-59); African American GFR (CKD) >90 (>60 ml/min/1.73 sqM); Albumin 4.7 g/dL (3.5-5.0); Alkaline Phosphatase 64 U/L (38-126); Anion Gap 9 mmol/L; Blood Urea Nitrogen 20 mg/dL (9-20); Calcium 9.6 mg/dL (8.4-10.2); Carbon Dioxide 25 mmol/L (22-30); Chloride 102 mmol/L (98-107); Glucose 104 mg/dL (74-99); Magnesium 2.1 mg/dL (1.6-2.3); Non-African American GFR(CKD) >90 (>60 ml/min/1.73 sqM); Potassium 4.1 mmol/L (3.5-5.1); Sodium 136 mmol/L (137-145); Total Bilirubin 0.7 mg/dL (0.2-1.3); Total Protein 7.5 g/dL (6.3-8.2)
[2021-08-09 00:50] LABS: INR 2.9 (<1.2); Partial Thromboplastin Time 35.8 sec (22.0-30.0)
--- NOTE | 2021-08-09 01:27 | ED ---
General Adult HPI - General Chief complaint: Shortness of Breath Stated complaint: Diff Breathing,Marfan's Syndrome Time Seen by Provider: 08/08/21 23:00 Source: patient Mode of arrival: ambulatory Limitations: no limitations - History of Present Illness Initial comments: 30-year-old male patient with past medical history significant for Marfan syndrome presents for evaluation of shortness of breath. Patient states that he had COVID-19 in November and feels that he has never fully recovered. States that he has been generally short of breath since then. Reports increased fatigue especially when working out. Denies any current cough or congestion. Denies any fever or chills. Denies swelling to his extremities. He does have an artificial valves and does take Coumadin for this. Denies any current chest pain. Does have appointments coming up with his systems mechanic and email producer. Denies having any diagnosed lung conditions. - Related Data Home Medications Medication Instructions Recorded Confirmed Losartan [Cozaar] 50 mg PO DAILY 07/01/16 12/01/19 Spironolactone [Aldactone] 25 mg PO DAILY 07/01/16 12/01/19 carvediloL [Coreg] 6.25 mg PO BID 07/01/16 12/01/19 Ibuprofen [Motrin Ib] 400 mg PO Q6H PRN 12/01/19 12/01/19 Naproxen Sodium [Aleve] 220 mg PO BID PRN 12/01/19 12/01/19 SUMAtriptan SUCCINATE [Imitrex] 100 mg PO DAILY PRN 12/01/19 12/01/19 Temazepam [Restoril] 30 mg PO HS PRN 12/01/19 12/01/19 Warfarin [Coumadin] 10 mg PO HS 12/01/19 12/01/19 diphenhydrAMINE HCL [Benadryl] 25 mg PO HS PRN 12/01/19 12/01/19 Pitolisant HCl [Wakix] 17.8 mg PO DAILY 12/02/19 12/02/19 Previous Rx's Medication Instructions Recorded guaiFENesin-DM 600/30MG [Mucinex 2 each PO Q12HR PRN #20 tab 08/09/21 Dm] Allergies Allergy/AdvReac Type Severity Reaction Status Date / Time amoxicillin Allergy Unknown Verified 08/08/21 22:39 Childhood Review of Systems ROS Statement: Those systems with pertinent positive or pertinent negative responses have been documented in the HPI. ROS Other: All systems not noted in ROS Statement are negative. Past Medical History Additional Past Medical History / Comment(s): Marfan's Syndrome; Valvular issues AVR 2015; Spontaneous Pneumo; Aortic aneurysm, migraines, covid History of Any Multi-Drug Resistant Organisms: None Reported Past Surgical History: Appendectomy, Orthopedic Surgery Additional Past Surgical History / Comment(s): Eye surgery; Foot surgery x4. mechanical heart valve. Past Anesthesia/Blood Transfusion Reactions: No Reported Reaction Additional Past Anesthesia/Blood Transfusion Reaction / Comment(s): Patient states that he has woke up during every surgery he has had. Past Psychological History: No Psychological Hx Reported Smoking Status: Never smoker Past Alcohol Use History: None Reported Past Drug Use History: None Reported - Past Family History Father Family Medical History: AFIB Mother Family Medical History: No Reported History General Exam Limitations: no limitations General appearance: alert, in no apparent distress, other (This is a well- developed, well-nourished adult male patient in no acute distress.) ENT exam: Present: normal exam, normal oropharynx, mucous membranes moist Respiratory exam: Present: normal lung sounds bilaterally. Absent: respiratory distress, wheezes, rales, rhonchi, stridor Cardiovascular Exam: Present: regular rate, normal rhythm, normal heart sounds. Absent: systolic murmur, diastolic murmur, rubs, gallop, clicks GI/Abdominal exam: Present: soft, normal bowel sounds. Absent: distended, tenderness, guarding, rebound, rigid Neurological exam: Present: alert, oriented X3, CN II-XII intact Psychiatric exam: Present: normal affect, normal mood Skin exam: Present: warm, dry, intact, normal color. Absent: rash Course Vital Signs 08/08/21 08/09/21 22:34 01:37 Temperature 97.7 F Pulse Rate 100 80 Respiratory 20 17 Rate Blood Pressure 154/90 135/84 O2 Sat by Pulse 98 96 Oximetry EKG Findings - EKG Comments: EKG Findings:: EKG obtained at 0024 shows normal sinus rhythm with a ventricular rate 65, OR interval 196, QRS duration 100, QT 396, QTC 411. No evidence of ST elevation or depression. Medical Decision Making - Medical Decision Making 30-year-old male patient presents to the emergency department today for persistent shortness of breath since having Covid in November. Physical examination is unremarkable. Lungs are clear to auscultation with good air movement. He has no extremity swelling. Labs reviewed and did reveal normal CBC. His INR is therapeutic. D-dimer negative. BNP negative. Troponin negative. EKG was unremarkable. Chest x-ray is negative. I did discuss findings and results with him. He'll be discharged to follow-up with his primary care physician, systems mechanic, and email producer for further evaluation as soon as possible. Return parameters were discussed in detail. He verbalizes understanding and agrees with this plan. Case discussed with my attending Dr. Paris. - Lab Data Result diagrams: 08/08/21 23:44 08/08/21 23:44 Lab Results 08/08/21 08/08/21 08/08/21 Range/Units 00:28 23:44 23:44 WBC 7.2 (3.8-10.6) k/uL RBC 4.51 (4.30-5.90) m/uL Hgb 14.7 (13.0-17.5) gm/dL Hct 41.6 (39.0-53.0) % MCV 92.3 (80.0-100.0) fL MCH 32.5 (25.0-35.0) pg MCHC 35.2 (31.0-37.0) g/dL RDW 11.8 (11.5-15.5) % Plt Count 254 (150-450) k/uL MPV 7.7 Neutrophils % 56 % Lymphocytes % 34 % Monocytes % 6 % Eosinophils % 2 % Basophils % 0 % Neutrophils # 4.1 (1.3-7.7) k/uL Lymphocytes # 2.4 (1.0-4.8) k/uL Monocytes # 0.5 (0-1.0) k/uL Eosinophils # 0.1 (0-0.7) k/uL Basophils # 0.0 (0-0.2) k/uL PT 28.0 H (9.0-12.0) sec INR 2.9 H (<1.2) APTT 35.8 H (22.0-30.0) sec D-Dimer 0.18 (<0.60) mg/L FEU Sodium (137-145) mmol/L Potassium (3.5-5.1) mmol/L Chloride (98-107) mmol/L Carbon Dioxide (22-30) mmol/L Anion Gap mmol/L BUN (9-20) mg/dL Creatinine (0.66-1.25) mg/dL Est GFR (CKD-EPI)AfAm (>60 ml/min/1.73 sqM) Est GFR (CKD-EPI)NonAf (>60 ml/min/1.73 sqM) Glucose (74-99) mg/dL Calcium (8.4-10.2) mg/dL Magnesium (1.6-2.3) mg/dL Total Bilirubin (0.2-1.3) mg/dL AST (17-59) U/L ALT (4-49) U/L Alkaline Phosphatase (38-126) U/L Troponin I (0.000-0.034) ng/mL NT-Pro-B Natriuret Pep 65 pg/mL Total Protein (6.3-8.2) g/dL Albumin (3.5-5.0) g/dL 08/08/21 08/08/21 Range/Units 23:44 23:44 WBC (3.8-10.6) k/uL RBC (4.30-5.90) m/uL Hgb (13.0-17.5) gm/dL Hct (39.0-53.0) % MCV (80.0-100.0) fL MCH (25.0-35.0) pg MCHC (31.0-37.0) g/dL RDW (11.5-15.5) % Plt Count (150-450) k/uL MPV Neutrophils % % Lymphocytes % % Monocytes % % Eosinophils % % Basophils % % Neutrophils # (1.3-7.7) k/uL Lymphocytes # (1.0-4.8) k/uL Monocytes # (0-1.0) k/uL Eosinophils # (0-0.7) k/uL Basophils # (0-0.2) k/uL PT (9.0-12.0) sec INR (<1.2) APTT (22.0-30.0) sec D-Dimer (<0.60) mg/L FEU Sodium 136 L (137-145) mmol/L Potassium 4.1 (3.5-5.1) mmol/L Chloride 102 (98-107) mmol/L Carbon Dioxide 25 (22-30) mmol/L Anion Gap 9 mmol/L BUN 20 (9-20) mg/dL Creatinine 0.90 (0.66-1.25) mg/dL Est GFR (CKD-EPI)AfAm >90 (>60 ml/min/1.73 sqM) Est GFR (CKD-EPI)NonAf >90 (>60 ml/min/1.73 sqM) Glucose 104 H (74-99) mg/dL Calcium 9.6 (8.4-10.2) mg/dL Magnesium 2.1 (1.6-2.3) mg/dL Total Bilirubin 0.7 (0.2-1.3) mg/dL AST 93 H (17-59) U/L ALT 53 H (4-49) U/L Alkaline Phosphatase 64 (38-126) U/L Troponin I 0.019 (0.000-0.034) ng/mL NT-Pro-B Natriuret Pep pg/mL Total Protein 7.5 (6.3-8.2) g/dL Albumin 4.7 (3.5-5.0) g/dL - Radiology Data Radiology results: report reviewed, image reviewed Two-view x-ray of the chest is obtained. Report was reviewed in its entirety. Impression by Dr. Doran shows no active cardiopulmonary disease. No change. Disposition Clinical Impression: Shortness of breath Disposition: HOME SELF-CARE Condition: Good Instructions (If sedation given, give patient instructions): Shortness of Breath (ED) Additional Instructions: Primary care physician, systems mechanic and email producer as soon as possible. Re turn for any new, worsening, or concerning symptoms. Prescriptions: guaiFENesin-DM 600/30MG [Mucinex Dm] 2 each PO Q12HR PRN #20 tab PRN Reason: Cough Is patient prescribed a controlled substance at d/c from ED?: No Referrals: Teressa Resendiz MD [Primary Care Provider] - 1-2 days Time of Disposition: 01:27
[2021-08-09 01:42] VITALS: BP 135/84; PULSE 80; RESP 17
== END 2021-08-09 01:37 | disposition home or self-care (01) ==
LOC: EC 20:42
DX: R06.02 Shortness of breath (principal); Z79.02 Long term (current) use of antithrombotics/antiplatelets; Z88.0 Allergy status to penicillin; Z90.49 Acquired absence of other specified parts of digestive tract
CPT/HCPCS: 36415; 71046; 80053; 83735; 83880; 84484; 85025; 85379; 85610; 85730; 93005; 99285

== ENCOUNTER → 2022-03-22 | Outpatient (CLI) | payer MEDICARE, OTHER | END | disposition home or self-care (01) | LOC: LABWHC1 15:20 | PROVIDERS: ATTEND Internal Medicine | DX: N62 Hypertrophy of breast (principal) | CPT/HCPCS: 36415; 82672; 84144; 84403 ==

== ENCOUNTER → 2022-08-01 | Outpatient (CLI) | payer MEDICARE, OTHER ==
--- NOTE | 2022-08-01 11:17 | P.PN ---
Subjective DATE: 08/01/2022 FOLLOW UP VISIT. Patient returned to sleep center for follow-up visit related to treatment of significant excessive daytime sleepiness secondary to narcolepsy. Patient for about one year on treatment with Xywav 2 doses at night, but feels brain fog in the morning and did not take medication recently. On modafinil 200 mg in the morning patient is able to maintain his alertness. Alsen sleepiness scale today slightly increased to 13. . MEDICATIONS:1. Xywav 2. Modafinil 200 mg in the morning as needed 3. Carvedilol 4. Losartan 5. Warfarin During physical exam: GENERAL: A pleasant patient without any distress. VITAL SIGNS: BP 135/84, HR 79, RR 18, weight 228.6 height 7 feet, temperature 97.5, oxygen saturation at room air 96%. HEENT: PERRLA, EOMI. NECK: Supple. No JVD. LUNGS: Clear to percussion and to auscultation. Good air exchange. No wheezing or rhonchi. HEART: Sounds of mechanical aortic valve, regular. ABDOMEN: Soft and nontender. EXTREMITIES: No clubbing or cyanosis. STRETCH PRESS OPERATOR: Awake, alert, and oriented x3. No focal deficit. Impressions: 1. Narcolepsy 2. Marfan syndrome. 3. Status post aortic 12 replacement with mechanical valve. 4. Status post left-sided pneumothorax. 5. History of migraines. 6. History of low ejection fraction by echocardiogram in the past. 7. Status post appendectomy. Plan: 1. Patient will continue treatment with modafinil 200 mg in the morning. Xywav will be stopped at the present time. 2. Sleep hygiene with regular time in bed for at least 8 hours. 3. Daytime naps permitted 4. Extreme precautions related to driving. No driving if feel any sleepiness. Patient is aware about civil and criminal liability for unsafe driving, promised to follow recommendations. 5. Follow up visit in 4-6 months or earlier if patient has any problems. Thank you very much for allowing me to participate in the management of your patient. Bryce Danielle MD, PhD, FAASM. Diplomat of [place] [employer], Sleep Medicine Board by [place] [employer] [place] [facility] [place]
== END | disposition home or self-care (01) ==
LOC: SLEEP 10:50
PROVIDERS: ATTEND Internal Medicine
DX: G47.419 Narcolepsy without cataplexy (principal); Q87.40 Marfan syndrome, unspecified; Z95.2 Presence of prosthetic heart valve; Z87.09 Personal history of other diseases of the respiratory system; G43.909 Migraine, unspecified, not intractable, without status migrainosus; Z48.815 Encounter for surgical aftercare following surgery on the digestive system; Z88.1 Allergy status to other antibiotic agents; Z79.01 Long term (current) use of anticoagulants
CPT/HCPCS: 99212

== ENCOUNTER → 2022-12-05 | Outpatient (CLI) | payer MEDICARE, OTHER ==
[2022-12-05 18:12] LABS: HCT 43.7 % (39.6-50.0); HGB 14.5 g/dL (13.0-17.0); MCH 30.9 pg (27.0-32.0); MCHC 33.2 g/dL (32.0-37.0); MCV 93.2 fL (80.0-97.0); Mean Platelet Volume 11.5 fL (9.5-12.2); NRBC Per 100 WBC 0 /100 WBCS (0.0-0.0); Platelet Count 264 X 10*3/uL (140-440); RBC 4.69 X 10*6/uL (4.40-5.60); RDW 12.8 % (11.5-14.5); WBC 4.29 X 10*3/uL (4.50-10.00)
[2022-12-05 18:38] LABS: ALT 27 U/L (10-49); AST 24 U/L (14-35); African American GFR (CKD) 123.6 (60.0-200.0); Albumin 4.8 g/dL (3.8-4.9); Alkaline Phosphatase 70 U/L (41-126); BUN/Creat Ratio 15.71 Ratio (12.00-20.00); Blood Urea Nitrogen 14.7 mg/dL (9.0-27.0); Calcium 10.1 mg/dL (8.7-10.3); Carbon Dioxide 28.2 mmol/L (20.0-27.5); Chloride 101 mmol/L (96-109); Chol/HDL Ratio 3.37 Ratio; Globulin 2.4 g/dL (1.6-3.3); Glucose 112 mg/dL (70-110); LDL Cholesterol,Calculated 141.4 mg/dL (0.0-131.0); Non-African American GFR(CKD) 106.7 (60.0-200.0); Potassium 5.1 mmol/L (3.5-5.5); Sodium 138 mmol/L (135-145); Total Protein 7.3 g/dL (6.2-8.2); VLDL Calculation 14.82 mg/dL (5.00-40.00)
== END | disposition home or self-care (01) ==
LOC: LABWHC1 13:36
PROVIDERS: ATTEND Internal Medicine Interventional Cardiology
DX: I71.21 Aneurysm of the ascending aorta, without rupture (principal); I42.8 Other cardiomyopathies; E78.5 Hyperlipidemia, unspecified; R79.89 Other specified abnormal findings of blood chemistry
CPT/HCPCS: 36415; 80053; 80061; 82306; 83735; 84443; 85027

== ENCOUNTER 2023-09-08 15:50 | Emergency (ER) | payer MEDICARE, OTHER ==
--- NOTE | 2023-09-08 17:34 | ED ---
General Adult HPI - General Chief complaint: Skin/Abscess/Foreign Body Stated complaint: skin rash Time Seen by Provider: 09/08/23 16:56 Source: patient, RN notes reviewed, old records reviewed Mode of arrival: ambulatory Limitations: no limitations - History of Present Illness Initial comments: 32-year-old male with Marfan's presenting for evaluation of areas of swelling and erythema, patient states she's had been present for many months and have been an alternate locations. He said sometimes they drained and he was concern for bacterial infection. 4. No cough. No dyspnea. History of mechanical aortic valve on Coumadin. He states he checks his INR daily and he states he has been therapeutic. - Related Data Home Medications Medication Instructions Recorded Confirmed Losartan [Cozaar] 50 mg PO DAILY 07/01/16 12/01/19 Spironolactone [Aldactone] 25 mg PO DAILY 07/01/16 12/01/19 carvediloL [Coreg] 6.25 mg PO BID 07/01/16 12/01/19 Ibuprofen [Motrin Ib] 400 mg PO Q6H PRN 12/01/19 12/01/19 Naproxen Sodium [Aleve] 220 mg PO BID PRN 12/01/19 12/01/19 SUMAtriptan succinate [Imitrex] 100 mg PO DAILY PRN 12/01/19 12/01/19 Temazepam [Restoril] 30 mg PO HS PRN 12/01/19 12/01/19 Warfarin [Coumadin] 10 mg PO HS 12/01/19 12/01/19 diphenhydrAMINE HCL [Benadryl] 25 mg PO HS PRN 12/01/19 12/01/19 Pitolisant HCl [Wakix] 17.8 mg PO DAILY 12/02/19 12/02/19 Previous Rx's Medication Instructions Recorded guaiFENesin-DM 600/30MG [Mucinex 2 each PO Q12HR PRN #20 tab 08/09/21 Dm] Cephalexin [Keflex] 500 mg PO TID 7 Days #21 cap 09/08/23 Allergies Allergy/AdvReac Type Severity Reaction Status Date / Time amoxicillin Allergy Unknown Verified 08/08/21 22:39 Childhood Review of Systems ROS Statement: Those systems with pertinent positive or pertinent negative responses have been documented in the HPI. ROS Other: All systems not noted in ROS Statement are negative. Past Medical History Additional Past Medical History / Comment(s): Marfan's Syndrome; Valvular issues AVR 2015; Spontaneous Pneumo; Aortic aneurysm, migraines, covid History of Any Multi-Drug Resistant Organisms: None Reported Past Surgical History: Appendectomy, Orthopedic Surgery Additional Past Surgical History / Comment(s): Eye surgery; Foot surgery x4. me chanical aortic heart valve. Past Anesthesia/Blood Transfusion Reactions: No Reported Reaction Additional Past Anesthesia/Blood Transfusion Reaction / Comment(s): Patient states that he has woke up during every surgery he has had. Past Psychological History: No Psychological Hx Reported Smoking Status: Never smoker Past Alcohol Use History: None Reported Past Drug Use History: None Reported - Past Family History Father Family Medical History: AFIB Mother Family Medical History: No Reported History General Exam Limitations: no limitations General appearance: alert, in no apparent distress Head exam: Present: atraumatic, normocephalic Eye exam: Present: normal appearance, PERRL ENT exam: Present: normal exam Neck exam: Present: normal inspection. Absent: tenderness, meningismus Respiratory exam: Present: normal lung sounds bilaterally. Absent: respiratory distress, wheezes Cardiovascular Exam: Present: regular rate, normal rhythm, systolic murmur Extremities exam: Present: normal inspection Neurological exam: Present: alert, oriented X3, CN II-XII intact. Absent: motor sensory deficit Psychiatric exam: Present: anxious Skin exam: Present: warm, intact (3 areas of folliculitis 1 with small pustule on his back. No significant cellulitis.) Course Vital Signs 09/08/23 15:55 Temperature 97.4 F L Pulse Rate 84 Respiratory 18 Rate Blood Pressure 158/76 O2 Sat by Pulse 98 Oximetry Medical Decision Making - Medical Decision Making Was pt. sent in by a medical professional or institution (, PA, SLOT OPERATIONS MANAGER, urgent care, hospital, or care home...) When possible be specific @ -No Did you speak to anyone other than the patient for history (EMS, parent, family, police, friend...)? What history was obtained from this source @ -No Did you review nursing and triage notes (agree or disagree)? Why? @ -I reviewed and agree with nursing and triage notes Were old charts reviewed (outside hosp., previous admission, EMS record, old EKG, old radiological studies, urgent care reports/EKG's, care home records)? Report findings @ -No old charts were reviewed Differential Diagnosis (chest pain, altered mental status, abdominal pain women, abdominal pain men, vaginal bleeding, weakness, fever, dyspnea, syncope, headache, dizziness, GI bleed, back pain, seizure, CVA, palpatations, mental health, musculoskeletal)? @Folliculitis, abscess EKG interpreted by me (3pts min.). @ -As above X-rays interpreted by me (1pt min.). @ -None done CT interpreted by me (1pt min.). @ -None done U/S interpreted by me (1pt. min.). @ -None done What testing was considered but not performed or refused? (CT, X-rays, U/S, labs)? Why? @ -None What meds were considered but not given or refused? Why? @ -None Did you discuss the management of the patient with other professionals (professionals i.e. , PA, SLOT OPERATIONS MANAGER, lab, RT, psych nurse, web content & social media manager, cook ice cream, teacher, hospital chief executive officer, pillowcase cutter)? Give summary @ -No Was smoking cessation discussed for >3mins.? @ -No Was critical care preformed (if so, how long)? @ -No Were there social determinants of health that impacted care today? How? (Homelessness, low income, unemployed, alcoholism, drug addiction, transport ation, low edu. Level, literacy, decrease access to med. care, retirement, rehab)? @ -No Was there de-escalation of care discussed even if they declined (Discuss DNR or withdrawal of care, Hospice)? DNR status @ -No What co-morbidities impacted this encounter? (DM, HTN, Smoking, COPD, CAD, Cancer, CVA, ARF, Chemo, Hep., AIDS, mental health diagnosis, sleep apnea, morbid obesity)? @ -Marfan's Was patient admitted / discharged? Hospital course, mention meds given and route, prescriptions, significant lab abnormalities, going to OR and other pertinent info. @ -Patient is stable for discharge. Prescribed oral antibiotics and instructed to use Hibiclens. Undiagnosed new problem with uncertain prognosis? @ -No] Drug Therapy requiring intensive monitoring for toxicity (Heparin, Nitro, Insulin, Cardizem)? @ -[No] Were any procedures done? @ -[No] Diagnosis/symptom? @ -[Folliculitis with minimal cellulitis Acute, or Chronic, or Acute on Chronic? @ -chronic Uncomplicated (without systemic symptoms) or Complicated (systemic symptoms)? @ -[default] Side effects of treatment? @ -[No] Exacerbation, Progression, or Severe Exacerbation? @ -[No] Poses a threat to life or bodily function? How? (Chest pain, [place], NC, pneumonia, PE, COPD, DKA, ARF, appy, cholecystitis, CVA, Diverticulitis, Homicidal, Suicidal, threat to staff... and all critical care pts) @ -[No] Disposition Clinical Impression: Folliculitis Disposition: HOME SELF-CARE Condition: Fair Instructions (If sedation given, give patient instructions): Folliculitis (ED) Prescriptions: Cephalexin [Keflex] 500 mg PO TID 7 Days #21 cap Is patient prescribed a controlled substance at d/c from ED?: No Referrals: None,Stated [Primary Care Provider] - 1-2 days Time of Disposition: 17:28
[2023-09-08 17:58] VITALS: BP 146/75; PULSE 80; RESP 16; TEMP 97.9
== END 2023-09-08 17:37 | disposition home or self-care (01) ==
LOC: EC 15:50
DX: L73.9 Follicular disorder, unspecified (principal); Z88.0 Allergy status to penicillin; Z79.01 Long term (current) use of anticoagulants
CPT/HCPCS: 99282

== ENCOUNTER → 2023-09-10 | Outpatient (CLI) | payer MEDICARE, OTHER ==
[2023-09-10 15:02] LABS: MCHC 34.1 g/dL (32.0-37.0); MCV 90.9 FL (80.0-97.0); Mean Platelet Volume 11.2 FL (9.5-12.2); NRBC Per 100 WBC 0 X 10*3/uL (0.00-0.01); Platelet Count 211 X 10*3/uL (140-440); RBC 4.51 X 10*6/uL (4.40-5.60); RDW 11.7 % (11.5-14.5); WBC 5.56 X 10*3/uL (4.50-10.00)
[2023-09-10 15:23] LABS: ALT 32 U/L (10-49); AST 26 U/L (14-35); Albumin 4.6 g/dL (3.8-4.9); Albumin/Globulin Ratio 1.92 Ratio (1.60-3.17); Alkaline Phosphatase 89 U/L (41-126); BUN/Creat Ratio 31.75 Ratio (12.00-20.00); Blood Urea Nitrogen 25.4 mg/dL (9.0-27.0); Calcium 9.8 mg/dL (8.7-10.3); Carbon Dioxide 21.5 mmol/L (21.6-31.8); Chloride 104 mmol/L (96-109); Globulin 2.4 g/dL (1.6-3.3); Glucose 95 mg/dL (70-110); Potassium 4.3 mmol/L (3.5-5.5); Sodium 139 mmol/L (135-145); Total Bilirubin 0.5 mg/dL (0.3-1.2)
== END | disposition home or self-care (01) ==
LOC: LABWHC1 10:05
PROVIDERS: ATTEND Internal Medicine
DX: R63.5 Abnormal weight gain (principal)
CPT/HCPCS: 36415; 80053; 82306; 84443; 85027

== ENCOUNTER → 2023-10-29 | Outpatient (CLI) | payer MEDICARE, OTHER ==
--- NOTE | 2023-10-30 09:38 | MR ---
EXAMINATION TYPE: MR iac wo/w con DATE OF EXAM: 10/29/2023 9:41 PM CLINICAL INDICATION:Male, 32 years old with history of [id number]; PHH, Asymmetrical sensorineural hearing loss right ear with unrestricted hearing loss on the contralateral side COMPARISON: None TECHNIQUE: Multi planar, multi sequence imaging was performed through the brain. Specialized thin s equences were obtained through the internal auditory canals. Pre-and post gadolinium sequences were obtained. MR contrast: IV Contrast: 10.5 cc Gadavist FINDINGS: The potter-white junctions, ventricular system, and cisterns appear unremarkable. 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 Midline structures show no abnormality. Diffusion-weighted imagi ng shows no evidence of restricted diffusion. The susceptibility weighted images do not reveal any ev idence for micro-hemorrhage. The bone marrow signal is within normal limits. Paranasal sinuses and mastoid air cells: Mild scattered paranasal sinus disease. Visualized orbits: Orbital contents are intact. After administration of gadolinium, no abnormal enhancement is seen. The internal auditory canal sequences demonstrate no significant irregularity. The 7th cranial nerve s, 8 cranial nerves, and cerebellar pontine angles appear unremarkable. After the administration ashlie olinium, no abnormal enhancement is seen within the internal auditory canals. Vascular loop: None. IMPRESSION: 1. No evidence of intracranial mass nor acute/subacute CVA. 2. No evidence of internal auditory canal abnormality.
== END | disposition home or self-care (01) ==
LOC: RADMRIMAIN 22:01
PROVIDERS: ATTEND Otolaryngology
DX: H90.41 Sensorineural hearing loss, unilateral, right ear, with unrestricted hearing on the contralateral side (principal)
CPT/HCPCS: 70553; A9585

== ENCOUNTER → 2024-08-03 | Outpatient (CLI) | payer MEDICARE, OTHER ==
--- NOTE | 2024-08-03 17:49 | CT ---
EXAMINATION TYPE: CT chest wo con DATE OF EXAM: 08/03/2024 4:39 PM COMPARISON: 08/09/2021 11/02/2019. CLINICAL INDICATION: Male, 33 years old with history of Q67.6 PECTUS EXCAVATUM; PHH, PECTUS EXCAVATUM hx of sx, pain and pressure on heart and lungs when standing in correct proper position TECHNIQUE: Multiple axial images were obtained through the chest. Sagittal and coronal reformats were created for review. MIP was performed on a separate workstation. Contrast used: mL of (None if empty) Oral contrast used: (None if empty) CT DLP: 342.40 mGycm, Automated exposure control for dose reduction was used. FINDINGS: LUNGS/ PLEURA: The lung parenchyma appears unremarkable. AIRWAY: Patent and unremarkable. Aortic valvular repair changes. HEART: Size within normal limits. MEDIASTINUM: No gross evidence of adenopathy. VASCULATURE: No aortic aneurysm. MUSCULOSKELETAL: No acute osseous abnormalities postsurgical changes to the sternum with sternotomy w ires. The sternum appears to have complete fusion. There is minimal pectus excavatum remaining. SOFT TISSUES/LYMPH NODES: Unremarkable. LOWER NECK: No significant findings. UPPER ABDOMEN: No significant findings. IMPRESSION: 1. Postsurgical changes in the sternum. Minimal pectus excavatum remains. 2. No evidence for acute thoracic process. [facility] Nessa Anglin, Workstation: [id number], 08/03/2024 5:47 PM
== END | disposition home or self-care (01) ==
LOC: RADCTMAIN 16:04
DX: Q67.6 Pectus excavatum (principal); Z98.890 Other specified postprocedural states
CPT/HCPCS: 71250